=== PATIENT | female | born 1935 | race Caucasian/White ===

== ENCOUNTER 2018-09-08 12:45 | Inpatient (IN) ==
--- NOTE | 2018-09-08 14:57 | Diag Imaging Result Doc PS360 ---
EXAM: CHEST-PORTABLE 09/08/2018 HISTORY: sob TECHNIQUE: AP portable at 1449 COMMENT: Compared to 05/29/2018 the pleural effusion which was previously present on the left has resolved. Otherwise the appearance of the chest has not changed significantly. IMPRESSION: No acute disease. Electronically signed by Wallace Thayer 09/08/2018 2:54 PM
[2018-09-08 15:11] LABS: ALB/GLOB RATIO 1.1; ALBUMIN 3.6 g/dL (3.5-5.0); CALCIUM 8.8 mg/dL (8.8-10.2); CREATININE 0.9 mg/dL (0.5-0.9); TOTAL BILIRUBIN 0.94 mg/dL (0.20-1.00); TOTAL PROTEIN 6.8 g/dL (6.3-8.3)
[2018-09-08 15:24] LABS: BASO# 0.02 X1000 (0.0-0.2); BASO% 0.2 % (0.0-0.8); EOS# 0.05 X1000 (0.0-0.7); EOS% 0.6 % (0.0-10.0); HEMATOCRIT 40.4 % (37.0-47.0); HEMOGLOBIN 12.7 g/dL (12.0-16.0); IMM GRAN# 0.02 X1000 (0.0-0.04); IMM GRAN% 0.2 % (0.0-0.5); LYMPH# 0.92 X1000 (1.2-3.4); LYMPH% 10.7 % (20.5-51.1); MCH 26.4 PG (27-31); MCHC 31.4 g/dL (33-37); MONO# 0.61 X1000 (0.11-0.59); MONO% 7.1 % (1.7-9.3); NEUT# 6.98 X1000 (1.4-6.5); NEUT% 81.2 % (42.2-75.2); PLT < 6 X1000 (130-400); RBC 4.81 XMIL (4.2-5.4); RDW 15.3 % (11.5-14.5)
[2018-09-08 15:35] LABS: LYMPHS 4 % (21-51); MONO 6 % (1-9); SEGS 90 % (42-75)
[2018-09-08 15:49] LABS: URINE SOURCE CLEAN CATCH
[2018-09-08] MEDS ORDERED: NS 1,000 ML IV ONE (15:55)
[2018-09-08 16:04] LABS: BILIRUBIN URINE NEGATIVE (NEGATIVE); BLOOD URINE MODERATE (NEGATIVE); COLOR STRAW; GLUCOSE URINE NEGATIVE (NEGATIVE); KETONE URINE NEGATIVE (NEGATIVE); LEUKOCYTES URINE TRACE (NEGATIVE); NITRITE URINE NEGATIVE (NEGATIVE); PROTEIN URINE NEGATIVE (NEGATIVE); SP GRAVITY URINE 1.001; TURBIDITY URINE CLEAR (CLEAR); UROBILINOGEN URINE NORMAL (NORMAL)
[2018-09-08 16:05] LABS: UR EPITHELIAL CELLS <10 /HPF (<10); URINE BACTERIA NEGATIVE /HPF; URINE RBC <10 /HPF (<10); URINE WBC <10 /HPF (<10)
[2018-09-08] MEDS ORDERED: SOLU-MEDROL IV ONE (16:12)
--- NOTE | 2018-09-08 16:15 | PROVIDER DOCUMENTATION ---
This chart was entered by Lubna Luis Scribe, acting as scribe for Anderson Wade MD. HPI-General Adult - General Chief Complaint: Shortness of Breath Stated Complaint: SOB,ON XARELTO,BLOOD UNDER LT EYE,KNOT ON RT THIGH Time Seen by Provider: 09/08/18 14:41 Source: patient, family (Daughter) Allergies/Adverse Reactions: Patient Allergies Allergy/AdvReac Type Severity Reaction Status Date / Time morphine Allergy RASH Verified 03/21/17 18:35 Home Medications: Home Medication List Medication Instructions Recorded Confirmed Last Taken Type Celecoxib 200 mg PO DAILY 03/21/17 03/21/17 03/21/17 History Furosemide [Lasix] 60 mg PO DAILY 03/21/17 03/21/17 03/21/17 History Levothyroxine [Synthroid] 44 microgm PO DAILY 03/21/17 03/21/17 03/21/17 History Methocarbamol 500 mg PO TID 03/21/17 03/21/17 03/21/17 History Metoprolol Tartrate 25 mg PO BID 03/21/17 03/21/17 03/21/17 History Montelukast [Singulair] 10 mg PO DAILY 03/21/17 03/21/17 03/21/17 History Potassium Chloride E.r. [Micro-K] 20 meq PO DAILY 03/21/17 03/21/17 03/21/17 History Rivaroxaban [Xarelto] 20 mg PO DAILY 03/21/17 03/21/17 03/21/17 History - History of Present Illness -Gen Adult Nature of Presenting Problems: 83 y/o female presents to the ED with complaint of petechia to bilateral lower extremities since last night,embolic lesions, blood pooling under left eye and hematoma above right knee without injury. The patient is on Xarelto. The patient is also hearing impaired and daughter is with her to help with communication. Location of Pain/Injury: reports: lower extremity (bilateral), generalized Onset/Duration: reports: last night Timing: reports: still present Context/Activities at Onset: reports: light activity Associated Symptoms: denies: diarrhea, fever/chills, nausea, vomiting Similar Symptoms Previously?: No Recently seen or treated by another doctor?: No Review of Systems - Adult - REVIEW OF SYSTEMS - ADULT Constitutional: denies: chills, fever, night sweats Cardiovascular: denies: chest pain, palpitations, syncope Gastrointestinal: denies: abdominal pain, diarrhea, nausea, vomiting Integumentary: reports: rash (bilateral lower extremities) Past History - Adult - PAST MEDICAL HISTORY-ADULT Review of Records: reports: Old Records Reviewed, Nursing Assessment Review, Medications Reviewed - IMMUNIZATION STATUS Childhood Immunizations: See Nurse Assessment Flu Vaccine: See Nurse Assessment - SOCIAL HISTORY Smoking: non-smoker Substance Use: none/never Alcohol Use Frequency: never Physical Exam-General - PHYSICAL EXAM-ADULT Initial Vital Signs Reviewed: Yes - CONSTITUTIONAL General Appearance: alert - EYES Eyes: other (blood pooling under left eye) - HEAD, EARS, NOSE, MOUTH & THROAT HENMT: normocephalic/atraumatic, moist mucous membranes - RESPIRATORY Respiratory: lungs clear, normal breath sounds. negative: rales, rhonchi, wheezing - CARDIOVASCULAR Cardiovascular: no murmur, other (atrial fibrillation) - GASTROINTESTINAL (ABDOMEN) Abdominal Exam: non tender, soft. negative: guarding, rebound - MUSCULOSKELETAL Back Exam: kyphosis (severe) - SKIN Integumentary: embolic lesions (left lower leg, right knee, back), other ( prominent petechia bilateral lower extremities, bleeding from venopuncture site , hematoma above right knee and left shoulder) Progress - PLAN OF CARE/RESULTS Progress/Plan/Lab Results: Vital Signs - 8 hr 09/08/18 12:51 Pulse Rate 88 Respiratory Rate 16 Blood Pressure 115/45 O2 Sat by Pulse Oximetry 100 Orders Category Date Time Status CHEST-PORTABLE [RAD] Stat Exams 09/08/18 14:42 Ordered CBC WITH ELECTRONIC DIFF [HEME] Stat Lab 09/08/18 14:47 Ordered COMPREHENSIVE METABOLIC PANEL [CHEM] Stat Lab 09/08/18 14:47 Ordered UA NIMS W/REFLEX CULT [URINALYSIS] Stat Lab 09/08/18 14:42 Uncollected 1407 Discussed diagnosis and admission with the patient and her daughter. They are in agreement. Result Diagrams: 09/08/18 13:58 09/08/18 13:58 - REASSESSMENT Reassessment #1 Time Reassessed: 16:13 Status: unchanged (Discussed with Dr Crespo. I suspect ITP and will give platelets plus steroids, consult heme-onc) - EKG 1 Time of EKG reading by physician:: 14:30 EKG Read and Signed by:: Anderson Wade EKG Interpretation (*Must complete 3 of following elements*): Abnormal Rate: 84 Rhythm: atrial fibrillation [place]: normal ST Wave: non-specific ST changes Prior EKG Comparison: unchanged from prior (03/21/17) - XRAY 1 XRAY Study: Chest Impression: Normal (EXAM: CHEST-PORTABLE 09/08/2018 HISTORY: sob TECHNIQUE: AP portable at 1449 COMMENT: Compared to 05/29/2018 the pleural effusion which was previously present on the left has resolved. Otherwise the appearance of the chest has not changed significantly. IMPRESSION: No acute disease. Electronically signed by Wallace Thayer 09/08/2018 2:54 PM) Comparison with other Films: changes noted (resolution of pleural effusion) - CONSULTS/PCP/HOSPITALIST Notification #1 *Consult/PCP/Hospitalist*: Dr Crespo for Danny Braden Time Discussed: 15:44 Reason/Comments: platelet count <6 Consult Disposition: Admit Departure - Departure Date of Disposition Decision: 09/08/18 Time of Disposition Decision: 15:41 DIAGNOSIS: Thrombocytopenia Disposition: ADMITTED INPATIENT 09 Certified Medical Emergency: Emergent Condition: Serious Referrals and Follow-Ups: Danny Braden MD [Primary Care Provider] - - Critical Care Note This patient required my direct & personal management of CC.: Yes Total Time (mins): 36 Critical Care Statement: This patient required my direct personal management to treat or rule out processes, the absence of which, could potentiallly result in sudden, clinically significant life or limb threatening deterioration. Attestation - Physician/ FABIÁN Attestation The physician spent face to face time with patient:: Yes Advanced Practice Provider documentation review:: Supervising physician onsite and consulted in the evaluation and care of this patient. The physician did have a face to face encounter with the patient. This chart was documented by the indicated scribe, (Lubna Luis, Leanna) and accurately reflects the services I performed and decisions made by me, Anderson Wade MD, as attested by the provider's signature.
--- NOTE | 2018-09-08 20:40 | HISTORY AND PHYSICAL ---
SUBJECTIVE: Spots all over my body and blood in my stool. Patient has been short of breath also. PRESENT ILLNESS: The patient is an 83-year-old white female with a history of heart failure, hypothyroidism, chronic atrial fibrillation and on Xarelto who started having petechiae over her body yesterday morning and started having some rectal bleeding. By that time other family members found out about this it was later at night and decided not to bring her to the emergency room until today. The bleeding has been very sparse and she is not anemic at this time. The petechiae started out on her shoulders and her back and it has spread over most of her body now. She has a couple of indurated areas that are probably little hematomas above her knees. PAST HISTORY: Includes hearing impairment to the point where she had to learn sign language, she has had a total hysterectomy, she has had cataract surgery. ALLERGIES: She is apparently allergic to morphine. SOCIAL HISTORY: Does not use alcohol or tobacco and never has. FAMILY HISTORY: Is unremarkable. REVIEW OF SYSTEMS: Neurological: Denies headaches, seizures, visual problems except in the left eye which she has had some chronic visual problems, someone told her that they thought she had a stroke in that eye in the past. She does have impaired hearing. Pulmonary: Has been short of breath for last day or so though chest x-ray appears normal, she denies any cough or wheezing. Cardiovascular: Denies chest pain, heart palpitations, PND, orthopnea. GI: Denies hematemesis, nausea, vomiting but does have hematochezia. : Denies any problems with urination. Endocrine: Does have hypothyroidism and takes thyroid replacement hormone. Musculoskeletal: Does have some osteoarthritis hurts her left shoulder especially at times. Psychiatric: Denies anxiety or depression at this time. PHYSICAL EXAMINATION: Pulse is 88, respirations 16, blood pressure 115/45, O2 saturation was 100%. HEENT: She is normocephalic. EOMS intact. PERRLA. Throat clear. Fundi not seen well due to constriction of pupils. She does have a little hematoma under her left eye. NECK: Is supple without thyromegaly, lymphadenopathy, carotid bruits. LUNGS: Clear to auscultation and percussion without rhonchi, rales, or wheezes. HEART: Irregularly irregular without murmurs, gallops, friction rubs. ABDOMEN: Soft. Active bowel sounds. No organomegaly or tenderness. NEUROLOGICAL: Cranial nerves 2-12 intact grossly, sensory and motor intact. Reflexes 1+ all. BREAST: Deferred. PELVIC: Deferred. RECTAL: Deferred at this point. INTEGUMENT: Shows petechiae over much of her body. LAB: Her platelet count is less than 6000, white count was 8600, hemoglobin 12.7, hematocrit 40.4. BUN and creatinine, electrolytes are stable, blood sugar was 136 nonfasting. Urinalysis was normal except for moderate blood on dipstick but less than 10 red blood cells per high- powered field microscopically. ASSESSMENT: 1. 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 2. Rectal bleeding mild at this point. 3. History of congestive heart failure. 4. Shortness of breath. 5. Hypothyroidism. 6. Hearing impaired. 7. Chronic atrial fibrillation. PLAN: We will stop her blood thinners. We will give her platelets. Will consult Hematology. She has been given 125 mg of Solu-Medrol IV. We will hold her Lasix and potassium at this time since she has a little rectal bleeding just in case she becomes hypotensive. We will continue with the metoprolol because we need it for heart rate is 25 mg p.o. b.i.d. Her regular medicines include Celebrex 200 mg daily, Lasix 60 mg daily, potassium 20 mEq daily, Xarelto 20 mg daily, levothyroxine 88 mcg daily, methocarbamol 500 mg every 6 hours as needed for muscle relaxation, metoprolol 25 mg p.o. b.i.d. and Singulair 10 mg at bedtime. Will watch platelets closely, will transfuse as needed. I have consulted hematology. She will be given a pack of platelets, may consider checking for antibodies against platelets, will consult with Dr. Yan about this. cc: Tyrone Crespo Jr, MD
[2018-09-08] MEDS: LOPRESSOR PO SCH (20:58)
[2018-09-09 06:10] LABS: INR 1.3; PROTIME 17.2 Seconds (11.0-16.0)
[2018-09-09 06:11] LABS: PTT 34.3 Seconds (22.3-41.8)
[2018-09-09 06:15] LABS: HEMATOCRIT 35.5 % (37.0-47.0); HEMOGLOBIN 11.3 g/dL (12.0-16.0); IMM GRAN# 0.04 X1000 (0.0-0.04); IMM GRAN% 0.5 % (0.0-0.5); LYMPH# 0.51 X1000 (1.2-3.4); LYMPH% 6.6 % (20.5-51.1); MCH 26.4 PG (27-31); MCHC 31.8 g/dL (33-37); MCV 82.9 FL (81-99); MONO# 0.17 X1000 (0.11-0.59); MONO% 2.2 % (1.7-9.3); NEUT# 6.96 X1000 (1.4-6.5); NEUT% 90.7 % (42.2-75.2); RBC 4.28 XMIL (4.2-5.4); RDW 14.9 % (11.5-14.5); WBC 7.68 X1000 (4.8-10.8)
[2018-09-09 06:16] LABS: PLT < 6 X1000 (130-400)
[2018-09-09] MEDS: SYNTHROID PO SCH (06:27)
[2018-09-09 06:39] LABS: AGAP 10; BUN 23 mg/dL (8-22); CALCIUM 8.4 mg/dL (8.8-10.2); CHLORIDE 102 mmol/L (98-107); COSMO 285; CREATININE 0.7 mg/dL (0.5-0.9); ESTIMATED GFR > 60; GLUCOSE 226 mg/dL (70-104); POTASSIUM 3.8 mmol/L (3.5-5.1); SODIUM 137 mmol/L (136-145); TCO2 25 mmol/L (25-35)
[2018-09-09 07:18] LABS: LDH 193 U/L (135-214)
[2018-09-09 07:53] LABS: LYMPHS 6 % (21-51); SEGS 94 % (42-75)
[2018-09-09] MEDS: LOPRESSOR PO SCH ×3 (09:52→20:01)
[2018-09-09] MEDS: SINGULAIR PO SCH (14:13)
[2018-09-09] MEDS: ROBAXIN PO SCH ×2 (14:14→17:29)
--- NOTE | 2018-09-09 15:18 | PROGRESS NOTE ---
DATE: 09/09/2018 SUBJECTIVE: The patient is doing well overall. She has had some petechia prominently and diffusely and she has bruising where she has had IV or blood draw, and she has a small hematoma on her right thigh, but overall has no major bleeding. She denies headache. OBJECTIVE: Vital Signs: Afebrile. Pulse 104, respirations 24, blood pressure 131/83, O2 sat room air 92% to 97%. Cardiovascular: Irregularly irregular. Lungs: Clear. Abdomen: Soft, nontender, nondistended. Extremities: No major edema, petechia prominent, diffuse, especially over the legs. Moderate bruising over the arms where she has had blood draws or IV site, but nothing severe. One small hematoma right distal thigh. HEENT: [place]. The patient is deaf. Cranial nerves are intact. She communicates with her family well with sign language primarily. There are no focal deficits. ASSESSMENT: 1. Severe thrombocytopenia. 2. History of mild hematochezia. 3. History of congestive heart failure. 4. Chronic atrial fibrillation, on Xarelto per Dr. Guardado, her manufacturing technologist. 5. Hypothyroidism. 6. Chronic deafness. PLAN: Continue IV Solu-Medrol. Dr. Yee has been notified regarding the patient is ordered anti- platelet antibody testing. We will leave her off the Xarelto and Celebrex she has been on, reinstitute her Lasix and potassium in the morning as she is concerned about leaving that off. Continue her Robaxin and Synthroid. We discussed with the help of her family about patient should not get up unassisted and I talked with the nurse that she should only be gotten up to go to the bathroom. She should not sit up in a chair at this point. We will re-evaluate labs in the morning. cc: MD Tyrone Barrera Jr, MD
[2018-09-09] MEDS: SOLU-MEDROL IV SCH ×2 (16:08→23:49)
[2018-09-10] MEDS: SOLU-MEDROL IV SCH ×5 (05:20→21:54)
[2018-09-10] MEDS: SYNTHROID PO SCH ×2 (05:21→06:10)
[2018-09-10 05:59] LABS: BASO# 0.01 X1000 (0.0-0.2); BASO% 0.1 % (0.0-0.8); HEMATOCRIT 37.4 % (37.0-47.0); IMM GRAN# 0.09 X1000 (0.0-0.04); IMM GRAN% 0.5 % (0.0-0.5); LYMPH# 0.91 X1000 (1.2-3.4); LYMPH% 5.4 % (20.5-51.1); MCH 26.7 PG (27-31); MCHC 32.1 g/dL (33-37); MCV 83.3 FL (81-99); MONO# 0.29 X1000 (0.11-0.59); MONO% 1.7 % (1.7-9.3); NEUT# 15.44 X1000 (1.4-6.5); NEUT% 92.3 % (42.2-75.2); RBC 4.49 XMIL (4.2-5.4); RDW 15.2 % (11.5-14.5); WBC 16.74 X1000 (4.8-10.8)
[2018-09-10 06:14] LABS: AGAP 14; BUN 24 mg/dL (8-22); CALCIUM 9.4 mg/dL (8.8-10.2); CHLORIDE 102 mmol/L (98-107); COSMO 290; CREATININE 0.7 mg/dL (0.5-0.9); ESTIMATED GFR > 60; GLUCOSE 217 mg/dL (70-104); POTASSIUM 4.1 mmol/L (3.5-5.1); SODIUM 140 mmol/L (136-145); TCO2 24 mmol/L (25-35)
[2018-09-10 06:16] LABS: PLT < 6 X1000 (130-400)
[2018-09-10 07:06] LABS: BANDS 4 % (0-1); LYMPHS 18 % (21-51); MONO 2 % (1-9); SEGS 76 % (42-75)
--- NOTE | 2018-09-10 08:42 | EKG Report ---
Test Performed on : 09/08/2018 1:50:34 PM Test Reason : ED. NO EKG ORDER FOR MUSE Blood Pressure : / mmHG Vent. Rate : 084 BPM Atrial Rate : 073 BPM P-R Int : 000 ms QRS Dur : 080 ms QT Int : 372 ms P-R-T Axes : 000 030 -26 degrees QTc Int : 439 ms Atrial fibrillation. Nonspecific ST and T wave abnormality Abnormal ECG When compared with ECG of 21-MAR-2017 17:56, Nonspecific T wave abnormality, worse in Anterolateral leads Unconfirmed Result
--- NOTE | 2018-09-10 09:00 | PROGRESS NOTE ---
DATE: 09/10/2018 SUBJECTIVE: Patient is stable. There have been no signs of bleeding at this point. OBJECTIVE: Vital signs: Afebrile, pulse 91, respirations 16, blood pressure 165/89. O2 saturation room air 90-94%. Eyes: [place]. EOMI. Sclerae clear. Minor bruising left lower lateral eyelid area. CARDIOVASCULAR: Irregularly irregular. Lungs: Computed tomography angiography. Abdomen: Soft, nontender, no bowel movement yet this morning. Extremities: Petechia over the legs. No lower extremity edema. A couple of small hematomas over the distal thighs bilaterally, one over the right lateral calf area. These are minor. Neurologic: Cranial nerves are intact. No focal deficits. The patient has chronic deafness, but reads lips well. LABORATORIES: White count 16.7, hemoglobin 12, platelets less than 6,000. Sodium 140, potassium 4.1, chloride 102, CO2 24, BUN 24, creatinine 0.7, glucose 217. LDH 193. ASSESSMENT: 1. Severe thrombocytopenia. 2. Mild hematochezia, stable. 3. Petechia associated with #1. 4. History of congestive heart failure, compensated. 5. Chronic atrial fibrillation on chronic Xarelto treatment per Cardiology, Dr. Guardado. 6. Hypothyroidism. 7. Chronic deafness. 8. Leukocytosis, thought related to steroids. PLAN: Continue IV Solu-Medrol. We are awaiting Hematology evaluation. The anti-platelet antibody is in progress. We are holding her Xarelto and Celebrex. Continue her Lasix, potassium, Robaxin and Synthroid. She is being maintained at fall risk precautions with minimal mobility at this time due to low platelets. cc: MD Tyrone Barrera Jr, MD
[2018-09-10] MEDS: LOPRESSOR PO SCH ×2 (10:11→21:50)
[2018-09-10] MEDS: LASIX PO SCH (10:11)
[2018-09-10] MEDS: KLOR-CON PO SCH ×3 (10:11→23:16)
[2018-09-10] MEDS: ROBAXIN PO SCH ×4 (10:11→17:52)
[2018-09-10] MEDS: SINGULAIR PO SCH ×2 (10:11→10:17)
[2018-09-10] MEDS ORDERED: IVIG DOSING ORDER MISC SCH (12:15)
[2018-09-10] MEDS ORDERED: GAMUNEX-C 10% IV ONE (12:15)
--- NOTE | 2018-09-10 16:35 | HEMO/ONC CONSULTATION ---
DATE: 09/10/2018 CONSULTATION REQUESTED ON: 09/08/2018 CONSULTATION REQUESTED BY: Dr. Crespo. REASON FOR CONSULTATION: Low platelet count. HISTORY OF PRESENT ILLNESS: Ms Rivera is a an 83-year-old female who actually presented after she developed petechiae and rectal bleeding while at home. The patient has a history of atrial fibrillation and was on Xarelto prior to her admission. She has now been admitted for further evaluation and treatment. Labs have revealed that the patient has a platelet count of less than 6000. She has been transfused with 1 unit of irradiated pheresis platelets without any improvement in her platelet count. The patient is also currently on Solu- Medrol 60 mg IV q.8 hours. The high-dose steroids have also did not caused her platelet count to increase. PAST MEDICAL HISTORY: 1. Hearing impairment, the patient requires sign language to communicate. 2. Cataracts . SURGICAL HISTORY: 1. A total hysterectomy. 2. Cataract surgery. SOCIAL HISTORY: Patient does not use alcohol, tobacco or illicit drugs. FAMILY HISTORY: Negative for any hematology disorders. REVIEW OF SYSTEMS: Twelve point review of systems has been completed negative except for what was expressed in the HPI. PHYSICAL EXAMINATION: Vital Signs: Temperature 97.8 degrees, heart rate 91, respirations 16, blood pressure 165/89, O2 saturation 94% on room air. General: This is a female lying in hospital bed. She has a family member at bedside to translate. She is hearing impaired and does require sign language to communicate. HEENT: Head appears to be normocephalic, atraumatic. Pupils equal, round, reactive. Oral mucosa is normal. Gross auditory acuity is not intact. Cardiovascular: S1-S2 heard. No murmurs, gallops, rubs appreciated. Respiratory: Chest is clear with normal respiratory effort. Gastrointestinal: Abdomen soft with positive bowel sounds noted. Musculoskeletal: No bony abnormalities. Skin: Patient has extensive petechiae bilateral lower extremities that starts at her feet and extends all the way to her mid thigh. She also has scattered ecchymotic lesions. She has slight oozing from her IV site in her right cubital fossa. Neurologic: Patient is alert and oriented. She does not appear to have any focal motor deficits. LABS AND STUDIES: White blood cells 16.74, hemoglobin 12.0, hematocrit 37.4, platelet count less than 6000, sodium 140, potassium 4.1, chloride 102, CO2 24, BUN 24, creatinine 0.7, glucose 217. ASSESSMENT/PLAN: 1. Thrombocytopenia. Believed that she has idiopathic thrombocytopenia. We agree with holding her Xarelto and NSAID therapy. High-dose steroids have not been effective so we recommend moving on to IVIG. The patient has good kidney function. Will go ahead and give a dose of Gamunex today. Reviewed treatment plan with patient and family member at bedside. They are agreeable. She will be monitored closely for infusion reactions and will follow up to make sure she had no toxicities to her therapy. We will continue to monitor her platelet count. Would recommend only proceeding with any further platelet transfusions at this time if she has significant bleeding. 2. Atrial fibrillation. Agree with holding Xarelto for the time being given her extremely low platelet count. 3. Hypertension. Continue current management per the primary team. 4. Hypothyroidism. Patient will continue with her Synthroid again per the primary team. We want to thank you for consulting us on Ms. Rivera while she is here at [facility]. Will continue to follow along adjust our treatment plan per her hospital course. Dictated by THI Fletcher for Danielle Yee MD cc: MD Tyrone De Los Santos Jr, MD I have seen and examined the patient and the above note reflects my history, physical, assessment and plan. Danielle GILBERT
[2018-09-11 06:11] LABS: AGAP 11; BUN 34 mg/dL (8-22); CALCIUM 8.9 mg/dL (8.8-10.2); CHLORIDE 101 mmol/L (98-107); COSMO 289; CREATININE 0.8 mg/dL (0.5-0.9); ESTIMATED GFR > 60; GLUCOSE 136 mg/dL (70-104); POTASSIUM 3.6 mmol/L (3.5-5.1); SODIUM 140 mmol/L (136-145); TCO2 28 mmol/L (25-35)
[2018-09-11] MEDS: SYNTHROID PO SCH (06:16)
[2018-09-11] MEDS: SOLU-MEDROL IV SCH (06:16)
[2018-09-11 06:23] LABS: EOS# 0.01 X1000 (0.0-0.7); EOS% 0.1 % (0.0-10.0); HEMATOCRIT 34.9 % (37.0-47.0); HEMOGLOBIN 11.1 g/dL (12.0-16.0); IMM GRAN# 0.11 X1000 (0.0-0.04); IMM GRAN% 0.9 % (0.0-0.5); LYMPH# 1.26 X1000 (1.2-3.4); LYMPH% 10.1 % (20.5-51.1); MCH 26.6 PG (27-31); MCHC 31.8 g/dL (33-37); MCV 83.7 FL (81-99); MONO# 1.15 X1000 (0.11-0.59); MONO% 9.2 % (1.7-9.3); NEUT# 9.93 X1000 (1.4-6.5); NEUT% 79.7 % (42.2-75.2); RBC 4.17 XMIL (4.2-5.4); RDW 15.4 % (11.5-14.5); WBC 12.46 X1000 (4.8-10.8)
[2018-09-11 06:59] LABS: PLT < 6 X1000 (130-400)
--- NOTE | 2018-09-11 09:21 | PROGRESS NOTE ---
DATE: 09/11/2018 SUBJECTIVE: The patient is stable. She has had a little bit of bright red blood in her stool this morning, she says. She is, overall, feeling well. OBJECTIVE: Vital Signs: Afebrile. Pulse 81, respirations 20, blood pressure 150/72. Extremities: Petechia over the legs is decreasing slightly. Lungs: CTA. HEART: Irregularly irregular. Abdomen: Soft, nontender, nondistended. Neurologic: Cranial nerves are intact. No focal deficits. She has chronic deafness sodium 140, potassium 3.6, chloride 101, CO2 of 28. BUN 34, creatinine 0.8, glucose 136, calcium 8.9. White count 12.46 on steroids. Hemoglobin 11.1, platelets less than 6. ASSESSMENT: 1. 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 Now, on IV immune immunoglobulin. 2. Mild hematochezia, thought related to #1. 3. Petechia thought related to #1. 4. History of congestive heart failure, currently compensated. 5. Chronic atrial fibrillation, previously on Xarelto, but off that now due to the thrombocytopenia. 6. Hypothyroidism. 7. Chronic deafness. 8. Leukocytosis thought related to steroids. PLAN: At this time, the steroids have not seemed to help so I stop that and leave that up to the legal examiner to see if they think this is necessary to continue that. At this time, there were trying immunoglobulin. We are continuing to hold her Xarelto and Celebrex. She remains on some Lasix, potassium, Robaxin, Synthroid. We are keeping her generally at bed rest to avoid falls. We will continue to monitor her platelet count. cc: MD Tyrone Barrera Jr, MD
[2018-09-11] MEDS: LOPRESSOR PO SCH ×2 (10:25→21:37)
[2018-09-11] MEDS: LASIX PO SCH (10:25)
[2018-09-11] MEDS: ROBAXIN PO SCH ×2 (10:26→17:13)
[2018-09-11] MEDS: SINGULAIR PO SCH (10:27)
[2018-09-11] MEDS: PROTONIX IV SCH (10:30)
[2018-09-11] MEDS: KLOR-CON PO SCH (21:37)
[2018-09-12] MEDS: SYNTHROID PO SCH (06:09)
[2018-09-12 07:56] LABS: AGAP 10; BUN 30 mg/dL (8-22); CHLORIDE 101 mmol/L (98-107); COSMO 289; CREATININE 0.7 mg/dL (0.5-0.9); ESTIMATED GFR > 60; GLUCOSE 126 mg/dL (70-104); POTASSIUM 3.7 mmol/L (3.5-5.1); SODIUM 141 mmol/L (136-145); TCO2 30 mmol/L (25-35)
[2018-09-12 08:03] LABS: BASO# 0.01 X1000 (0.0-0.2); BASO% 0.1 % (0.0-0.8); EOS# 0.06 X1000 (0.0-0.7); EOS% 0.5 % (0.0-10.0); HEMATOCRIT 38.3 % (37.0-47.0); HEMOGLOBIN 12.1 g/dL (12.0-16.0); IMM GRAN% 0.9 % (0.0-0.5); LYMPH# 1.91 X1000 (1.2-3.4); LYMPH% 16.4 % (20.5-51.1); MCH 26.6 PG (27-31); MCHC 31.6 g/dL (33-37); MCV 84.2 FL (81-99); MONO# 1.24 X1000 (0.11-0.59); MONO% 10.6 % (1.7-9.3); NEUT# 8.35 X1000 (1.4-6.5); NEUT% 71.5 % (42.2-75.2); PLT < 6 X1000 (130-400); RBC 4.55 XMIL (4.2-5.4); RDW 16.1 % (11.5-14.5); WBC 11.67 X1000 (4.8-10.8)
[2018-09-12 08:16] LABS: LYMPHS 8 % (21-51); SEGS 90 % (42-75)
--- NOTE | 2018-09-12 09:09 | PROGRESS NOTE ---
DATE: 09/12/2018 SUBJECTIVE: The patient is fairly stable. Her son is with her this morning. She had some worsened hematochezia this morning and has had some pain at the forefoot slightly. OBJECTIVE: Afebrile. Vital signs stable. CV: Irregularly irregular. Lungs: Clear. Abdomen soft, nontender. Extremities: No calf tenderness, cords, or edema. Some arthritic changes are noted at the forefoot bilaterally, left slightly greater than right. No tenderness there. There were no major hematomas over the legs, but petechia are slightly worsened again today compared to yesterday. LABORATORY DATA: White count 11.6, hemoglobin 12.1, platelets less than 6. Sodium 141, potassium 3.7, chloride 101, CO2 of 30. BUN 30, creatinine 0.7, glucose 126. ASSESSMENT: 1. Severe thrombocytopenia thought related to ITP followed by hematology with them having evaluated her again this morning. So far, no response to high-dose steroids and then IV immunoglobulin. 2. Mild hematochezia slightly worsened again. 3. Petechia. 4. Congestive heart failure, compensated. 5. CAF previously on Xarelto, off of that due to the thrombocytopenia. 6. Hypothyroidism. 7. Chronic deafness. 8. Mild leukocytosis thought related to steroids, now improved off the steroids. 9. Osteoarthritis. PLAN: Continue treatment per Hematology. Will follow along with her atrial fibrillation and other difficulties. I will speak with Hematology later today. cc: MD Tyrone Barrera Jr, MD MTDD
[2018-09-12] MEDS: LOPRESSOR PO SCH ×2 (09:20→21:31)
[2018-09-12] MEDS: PROTONIX IV SCH (09:21)
[2018-09-12] MEDS: SINGULAIR PO SCH ×2 (09:21→10:08)
[2018-09-12] MEDS: ROBAXIN PO SCH ×3 (09:21→21:31)
[2018-09-12] MEDS: SODIUM CHLORIDE 0.9% INJ SCH (09:21)
[2018-09-12] MEDS: LASIX PO SCH (09:21)
[2018-09-12] MEDS ORDERED: SOLU-MEDROL IV ONE (11:45)
[2018-09-12] MEDS ORDERED: IVIG DOSING ORDER MISC SCH (13:00)
[2018-09-12] MEDS: DECADRON PO SCH (14:54)
[2018-09-12] MEDS: GAMUNEX-C 10% IV SCH (18:32)
--- NOTE | 2018-09-13 00:34 | HEMO/ONC PROGRESS NOTE ---
DATE: 09/12/2018 SUBJECTIVE: Ms. Rivera is lying in her hospital bed. She has a family member at bedside. She is in no acute distress at this time. OBJECTIVE: Vital signs: Temperature 98.2 degrees, heart rate 95, respirations 18, blood pressure 136/74, O2 saturation 97% on room air. LABORATORIES: White blood cells 11.67, hemoglobin 12.1, hematocrit 38.3, platelet count less than 6000. Sodium 141, potassium 3.7, chloride 101, CO2 of 30, BUN 30, creatinine 0.7, glucose 126. PHYSICAL EXAMINATION: Cardiovascular: S1, S2 heard. No murmurs, gallops, or rubs appreciated. Irregularly irregular rhythm noted. Respiratory: Chest is clear with normal respiratory effort. Gastrointestinal: Abdomen is soft with positive bowel sounds. Musculoskeletal : No bony abnormalities. Extremities: No edema. ASSESSMENT AND PLAN: 1. Severe thrombocytopenia, believed to be secondary to idiopathic thrombocytopenic purpura. The patient is now status post some high-dose steroids as well as 1 dose of IVIG. The plan at this time will be to proceed with high-dose dexamethasone for 4 days. We will prescribe dexamethasone 40 mg p.o. x4. We are also going to go ahead and proceed with further IVIG, giving her an additional 4 doses. The patient has reported bright red blood per rectum this morning, and so we will proceed also with a unit of platelets. Continue to monitor platelet count. 2. Petechiae. These are still present and seem to actually maybe be a little bit worse. Treating ITP as per above. 3. Congestive heart failure, compensated. Aware. Management per primary team. 4. Atrial fibrillation. The patient was previously on Xarelto, but that is on hold now due to her thrombocytopenia. Rate seems controlled. Management per primary team. Dictated by THI Fletcher for Danielle Yee MD cc: MD Tyrone De Los Santos Jr, MD I have seen and examined the patient and the above note reflects my history, physical, assessment and plan. Danielle GILBERT
[2018-09-13] MEDS: SYNTHROID PO SCH (06:26)
[2018-09-13] MEDS: LOPRESSOR PO SCH ×2 (09:57→21:58)
[2018-09-13] MEDS: PROTONIX IV SCH (09:57)
[2018-09-13] MEDS: SODIUM CHLORIDE 0.9% INJ SCH (09:57)
[2018-09-13] MEDS: SINGULAIR PO SCH (09:57)
[2018-09-13] MEDS: ROBAXIN PO SCH ×3 (09:57→21:58)
[2018-09-13 10:18] LABS: BASO# 0.02 X1000 (0.0-0.2); BASO% 0.2 % (0.0-0.8); HEMATOCRIT 34.7 % (37.0-47.0); HEMOGLOBIN 11.1 g/dL (12.0-16.0); IMM GRAN% 0.9 % (0.0-0.5); LYMPH# 0.64 X1000 (1.2-3.4); LYMPH% 5.5 % (20.5-51.1); MCH 27.1 PG (27-31); MCV 84.8 FL (81-99); MONO# 0.43 X1000 (0.11-0.59); MONO% 3.7 % (1.7-9.3); NEUT# 10.48 X1000 (1.4-6.5); NEUT% 89.7 % (42.2-75.2); PLT 7 X1000 (130-400); RBC 4.09 XMIL (4.2-5.4); RDW 15.7 % (11.5-14.5); WBC 11.67 X1000 (4.8-10.8)
[2018-09-13 10:25] LABS: LYMPHS 10 % (21-51); SEGS 90 % (42-75)
[2018-09-13] MEDS: GAMUNEX-C 10% IV SCH (12:47)
--- NOTE | 2018-09-13 15:49 | HEMO/ONC PROGRESS NOTE ---
DATE: 09/13/2018 SUBJECTIVE: Ms. Rivera is sitting in her hospital bed. She is in no acute distress. She has a family member at bedside. OBJECTIVE: Vital Signs: Temperature 97.9, heart rate 120, respirations 19. Blood pressure 128/85. O2 saturation 99% on 2 L nasal cannula. LABORATORY DATA AND STUDIES: White blood cell 11.67, hemoglobin 11.1, platelet count 7000. PHYSICAL EXAMINATION: CV: Tachycardia noted. Irregularly irregular rhythm noted. Respiratory: Chest is clear. No respiratory effort. Abdomen soft with positive bowel sounds. Extremities: No edema. Skin: The patient continues to have scattered petechiae most prominent on her bilateral lower extremities but really widespread. She also has several ecchymotic lesions. ASSESSMENT AND PLAN: 1. Idiopathic thrombocytopenia. Patient denies any active bleeding currently. We have now given her 2 doses of IVIG. We have also started her on high-dose dexamethasone. We are going to go ahead and give her a unit of pheresed platelets today. We will repeat a CBC in the morning. She is scheduled for 3 additional IVIG treatments. She also has 2 additional days of high-dose steroids. We will monitor counts closely. Platelet count slightly up today. 2. Atrial fibrillation. She is also on Xarelto given her profound thrombocytopenia. Continue management per the primary team. 3. Gastrointestinal prophylaxis. Patient is receiving Protonix 40 mg IV daily. Dictated by THI Fletcher for Vic Yan MD cc: MD Tyrone Camacho Jr, MD MTDD
[2018-09-13] MEDS ORDERED: NS 500 ML IV SCH (16:00)
[2018-09-13] MEDS: DECADRON PO SCH (16:50)
--- NOTE | 2018-09-14 02:02 | PROGRESS NOTE ---
DATE: 09/13/2018 SUBJECTIVE: The patient is stable. There has been no significant bleeding. OBJECTIVE: Vital Signs: Afebrile. Pulse 120, respirations 19, blood pressure 128/85, O2 saturation on 2 L is 99%. Cardiovascular: Irregularly irregular. Lungs: Clear to auscultation. Abdomen: Nontender. Extremities: No significant edema. Mild petechiae over the legs is unchanged from yesterday. Neurologic: Cranial nerves are intact. No focal deficits. Chronic deafness unchanged. LABORATORY DATA: White count 11.67, hemoglobin 11.1, platelets 7000. ASSESSMENT: 1. Idiopathic thrombocytopenic purpura. 2. Mild hematochezia, stable. 3. Petechia. 4. Chronic atrial fibrillation previously on Xarelto, now off that due to the thrombocytopenia. 5. Hypothyroidism. 6. Chronic deafness. 7. Osteoarthritis. 8. Leukocytosis thought secondary to steroids. PLAN: The patient is receiving platelets, IVIG, and Decadron per Dr. Yee. We will continue to monitor her CBC for improvement of the platelets. We have taken her off her Lasix as that was causing her to have to get up and urinate quite often. cc: MD Tyrone Barrera Jr, MD
[2018-09-14] MEDS: SYNTHROID PO SCH (06:22)
[2018-09-14 07:30] LABS: BASO# 0.01 X1000 (0.0-0.2); BASO% 0.1 % (0.0-0.8); HEMATOCRIT 34.5 % (37.0-47.0); HEMOGLOBIN 10.9 g/dL (12.0-16.0); IMM GRAN# 0.11 X1000 (0.0-0.04); IMM GRAN% 0.8 % (0.0-0.5); LYMPH# 0.76 X1000 (1.2-3.4); LYMPH% 5.7 % (20.5-51.1); MCH 26.8 PG (27-31); MCHC 31.6 g/dL (33-37); MCV 84.8 FL (81-99); MONO# 0.44 X1000 (0.11-0.59); MONO% 3.3 % (1.7-9.3); NEUT# 12.07 X1000 (1.4-6.5); NEUT% 90.1 % (42.2-75.2); RBC 4.07 XMIL (4.2-5.4); RDW 15.9 % (11.5-14.5); WBC 13.39 X1000 (4.8-10.8)
[2018-09-14 07:31] LABS: PLT 18 X1000 (130-400)
[2018-09-14 07:33] LABS: AGAP 10; BUN 31 mg/dL (8-22); CALCIUM 9.2 mg/dL (8.8-10.2); CHLORIDE 98 mmol/L (98-107); COSMO 290; CREATININE 0.7 mg/dL (0.5-0.9); ESTIMATED GFR > 60; GLUCOSE 274 mg/dL (70-104); POTASSIUM 3.9 mmol/L (3.5-5.1); SODIUM 137 mmol/L (136-145); TCO2 29 mmol/L (25-35)
[2018-09-14 07:42] LABS: LYMPHS 4 % (21-51); MONO 6 % (1-9); SEGS 90 % (42-75)
[2018-09-14] MEDS: PROTONIX IV SCH (10:02)
[2018-09-14] MEDS: SODIUM CHLORIDE 0.9% INJ SCH (10:02)
[2018-09-14] MEDS: ROBAXIN PO SCH ×3 (10:03→21:18)
[2018-09-14] MEDS: LOPRESSOR PO SCH ×2 (10:03→21:18)
[2018-09-14] MEDS: GAMUNEX-C 10% IV SCH (10:03)
--- NOTE | 2018-09-14 13:36 | PROGRESS NOTE ---
DATE: 09/14/2018 SUBJECTIVE: Patient has been resting well. She is arousable and conversant. She has no complaints except she feels somewhat tired. OBJECTIVE: Afebrile, pulse 45, respirations 18, blood pressure 158/97, O2 saturation 93 to 100 percent on 2 L.CV: Irregularly irregular. Lungs: Clear. Abdomen: Nontender, nondistended. Extremities: No calf tenderness, cords or edema. Mild petechia over the legs look more old and slightly decreasing in prominence. LABS: White count 13.3 on steroids, hemoglobin 10.9, platelets 18,000. Sodium 137, potassium 3.9, chloride 98, CO2 of 29, BUN 31, creatinine 0.7, glucose 274, calcium 9.2. ASSESSMENT: 1. Idiopathic thrombocytopenia. 2. CAF previously on Xarelto now off of that due to #1. 3. Hypothyroidism. 4. Chronic deafness. 5. Osteoarthritis. 6. Leukocytosis thought related steroids. PLAN: Patient on IVIG and Decadron per Dr. Yee. Thankfully we are seeing some improvement in her platelets now. Further we will abide by Dr. Yee's recommendations. cc: MD Tyrone Barrera Jr, MD
[2018-09-14] MEDS: DECADRON PO SCH (15:29)
--- NOTE | 2018-09-14 16:17 | HEMO/ONC PROGRESS NOTE ---
DATE: 09/14/2018 SUBJECTIVE: Ms Rivera is sitting in her hospital bed. She does not appear to be in any acute distress. She reports that she is doing well. OBJECTIVE: Vital Signs: Temperature 98.1 degrees, heart rate 78, respirations 18, blood pressure 148/97, O2 saturation 100% on 2 L nasal cannula. LAB: White blood cells 13.39, hemoglobin 10.9, hematocrit 34.5, platelet count 18,000.CV: S1, S2 heard. No murmurs, gallops, rubs appreciated. Respiratory: Chest is clear. Normal respiratory effort. Gastrointestinal: Abdomen soft, positive bowel sounds. Musculoskeletal: No edema noted. ASSESSMENT AND PLAN: 1. Idiopathic thrombocytopenia. The patient is currently receiving intravenous immunoglobulin as well as high-dose dexamethasone. Her platelet count has risen to 18,000 today. Recommend continuing with IVIG and dexamethasone at this time. The patient can be discharged home and IVIG can be discontinued once she has a platelet count of 50,000. The patient only needs a total of 5 doses of IVIG. She only needs a total of 4 doses of high-dose steroids. Her platelet count should improve in the morning. We will plan for her to return to our office and have a CBC some time next week. She will then have an office visit with us the week after. We will get all this arranged once she is discharged from the hospital. 2. Atrial fibrillation. The patient is currently not receiving her Xarelto due to her profound thrombocytopenia. Management as per the primary team. 3. Gastrointestinal prophylaxis. Patient will continue with the Protonix IV as prescribed. 4. Disposition. Continue steroids and IVIG as per #1. Steroids and IVIG can be discontinued once her platelet count is 50,000 or greater or if she has received 5 total doses of IVIG and 4 total doses of dexamethasone whichever 1 occurs 1st. From our standpoint , once her platelets are at that level the patient can be discharged home. We will plan to do a repeat CBC next week and then follow up in 2 weeks. 5. We are going to sign off for the weekend and be available as needed. You can contact us with any questions. If the patient is still in the hospital Monday we will follow up at that time. Dictated by THI Fletcher for Dainelle Yee MD cc: MD Tyrone De Los Santos Jr, MD I have seen and examined the patient and the above note reflects my history, physical, assessment and plan. Danielle Yee MD [facility]
[2018-09-15] MEDS: SYNTHROID PO SCH (06:31)
[2018-09-15 08:06] LABS: HEMATOCRIT 35.7 % (37.0-47.0); HEMOGLOBIN 11.4 g/dL (12.0-16.0); MCH 27.3 PG (27-31); MCHC 31.9 g/dL (33-37); MCV 85.4 FL (81-99); RBC 4.18 XMIL (4.2-5.4); RDW 16.6 % (11.5-14.5); WBC 13.28 X1000 (4.8-10.8)
[2018-09-15 08:25] LABS: PLT 9 X1000 (130-400)
[2018-09-15] MEDS: SODIUM CHLORIDE 0.9% INJ SCH (09:22)
[2018-09-15] MEDS: GAMUNEX-C 10% IV SCH (09:22)
[2018-09-15] MEDS: PROTONIX IV SCH (09:22)
[2018-09-15] MEDS: LOPRESSOR PO SCH ×2 (09:22→22:00)
[2018-09-15] MEDS: ROBAXIN PO SCH ×3 (09:22→21:59)
--- NOTE | 2018-09-15 11:19 | PROGRESS NOTE ---
DATE: 09/15/2018 SUBJECTIVE: The patient is stable with no complaints. OBJECTIVE: Afebrile. Vital signs stable. CV: Irregularly irregular. Lungs: CTA. Abdomen soft, nontender, nondistended. Extremities: No edema, calf tenderness, or cords. Neuro: Cranial nerves are intact. Petechia, continue to fade very slightly. LABORATORY DATA: The labs today show white count of 13.28, hemoglobin 11.4. Platelets actually has gone down to 9 from 18 yesterday. ASSESSMENT: 1. Idiopathic thrombocytopenic purpura. 2. CAF with Xarelto currently being held due to #1. 3. Hypothyroidism. 4. Chronic deafness. 5. Osteoarthritis. 6. Mild leukocytosis thought related to steroid administration. PLAN: The patient remains on IVIG and oral Decadron per Dr. Yee. We will continue to follow platelets on this. cc: MD Tyrone Barrera Jr, MD MTDD
[2018-09-15] MEDS: DECADRON PO SCH (15:18)
[2018-09-16] MEDS: SYNTHROID PO SCH (06:27)
[2018-09-16] MEDS: LOPRESSOR PO SCH ×2 (09:09→21:58)
[2018-09-16] MEDS: ROBAXIN PO SCH ×3 (09:09→21:57)
[2018-09-16] MEDS: PROTONIX IV SCH (09:10)
[2018-09-16] MEDS: GAMUNEX-C 10% IV SCH (09:10)
[2018-09-16] MEDS: SODIUM CHLORIDE 0.9% INJ SCH (09:10)
[2018-09-16 10:40] LABS: HEMATOCRIT 33.3 % (37.0-47.0); HEMOGLOBIN 10.4 g/dL (12.0-16.0); MCHC 31.2 g/dL (33-37); MCV 86.5 FL (81-99); RBC 3.85 XMIL (4.2-5.4); RDW 16.6 % (11.5-14.5); WBC 13.05 X1000 (4.8-10.8)
[2018-09-16 10:45] LABS: PLT 6 X1000 (130-400)
--- NOTE | 2018-09-16 12:08 | PROGRESS NOTE ---
DATE: 09/16/2018 SUBJECTIVE: The patient is stable. She has had a little bright red blood per her nose associated with nasal cannula use of oxygen. OBJECTIVE: Vital Signs: Afebrile. Vital signs stable. Cardiovascular: RRR without murmur. Lungs: Clear. Abdomen: Soft. Active bowel sounds. Extremities: No calf tenderness, cords, or edema. Petechiae have almost completely resolved. There are a couple of small hematomas, right distal inner thigh areas. Neurologic: Cranial nerves are intact. Chronic deafness. Laboratory Data: White count 13, hemoglobin 10.4, platelets 6000. ASSESSMENT: 1. Thrombocytopenia, thought related to idiopathic thrombocytopenic purpura, slow to improve. 2. Paroxysmal atrial flutter/fibrillation, off of Xarelto treatment secondary to #1. 3. Hypothyroidism. 4. Chronic deafness. 5. Osteoarthritis. 6. Mild leukocytosis, thought related to recent steroid administration. PLAN: The patient will receive 1 more dose of IVIG this afternoon and Dr. Singh will reassess tomorrow. She is off of the Decadron orally now. We will continue to monitor her platelets closely in the morning. cc: MD Tyrone Barrera Jr, MD
[2018-09-17] MEDS: SYNTHROID PO SCH (06:26)
[2018-09-17 07:21] LABS: BASO# 0.02 X1000 (0.0-0.2); BASO% 0.2 % (0.0-0.8); EOS# 0.02 X1000 (0.0-0.7); EOS% 0.2 % (0.0-10.0); HEMATOCRIT 35.2 % (37.0-47.0); HEMOGLOBIN 11.1 g/dL (12.0-16.0); IMM GRAN# 0.62 X1000 (0.0-0.04); IMM GRAN% 5.3 % (0.0-0.5); LYMPH# 1.94 X1000 (1.2-3.4); LYMPH% 16.7 % (20.5-51.1); MCH 27.1 PG (27-31); MCHC 31.5 g/dL (33-37); MCV 85.9 FL (81-99); MONO# 0.86 X1000 (0.11-0.59); MONO% 7.4 % (1.7-9.3); NEUT# 8.13 X1000 (1.4-6.5); NEUT% 70.2 % (42.2-75.2); PLT 9 X1000 (130-400)
[2018-09-17 07:22] LABS: AGAP 9; BUN 29 mg/dL (8-22); CALCIUM 8.6 mg/dL (8.8-10.2); CHLORIDE 98 mmol/L (98-107); COSMO 280; CREATININE 0.6 mg/dL (0.5-0.9); ESTIMATED GFR > 60; GLUCOSE 143 mg/dL (70-104); POTASSIUM 3.8 mmol/L (3.5-5.1); SODIUM 136 mmol/L (136-145); TCO2 29 mmol/L (25-35)
[2018-09-17 07:42] LABS: BANDS 6 % (0-1); LYMPHS 22 % (21-51); NRBC 1 % (0-0); SEGS 72 % (42-75)
[2018-09-17] MEDS: PROTONIX IV SCH (08:59)
[2018-09-17] MEDS: LOPRESSOR PO SCH ×2 (08:59→21:36)
[2018-09-17] MEDS: ROBAXIN PO SCH ×3 (08:59→17:21)
[2018-09-17 10:28] LABS: WBC 11.59 X1000 (4.8-10.8)
[2018-09-17] MEDS ORDERED: LASIX IV ONE (12:43)
--- NOTE | 2018-09-17 13:36 | PROGRESS NOTE ---
DATE: 09/17/2018 SUBJECTIVE: Patient having some shortness of breath. Says she has had some nasal irritation with the nasal cannula. This has actually been stopped the last couple days, but apparently she had been wearing it. She denies chest pain, but has some shortness of breath. OBJECTIVE: Vital Signs: Afebrile, pulse 63, respirations 15, blood pressure 173/83, O2 saturation on 2 L 99%. CV: Irregularly irregular. Lungs: Cannot rule out rare crackle. ENT: Oropharynx, no significant redness or abnormality. Abdomen: Nontender. Extremities: No calf tenderness cords or edema. Petechia prominent over the shins. Neurologic: Cranial nerves 2 through 12 intact. Chronic deafness, stable. LABS: White count 11.5, hemoglobin 11.1, platelets 9. Sodium 136, potassium 3.8, chloride 98, CO2 of 29, BUN 29, creatinine 0.6, calcium 8.6. ASSESSMENT: 1. Thrombocytopenia thought related idiopathic thrombocytopenic purpura. 2. Paroxysmal atrial flutter/fibrillation, off Xarelto due to #1. 3. Hypothyroidism. 4. Chronic deafness. 5. Osteoarthritis. 6. Mild leukocytosis. PLAN: The patient is going down for chest x-ray. Leave her off the O2 as that is irritating her nose and causing it to bleed. She is receiving treatment per Oncology team, Dr. Yee/Yuriy. cc: MD Tyrone Barrera Jr, MD
--- NOTE | 2018-09-17 13:46 | Diag Imaging Result Doc PS360 ---
EXAM: CHEST-2 VIEWS HISTORY: SOB TECHNIQUE: Chest two views COMPARISON: 09/08/2018 FINDINGS: The lungs are hyperexpanded although there is basilar atelectasis. The heart is not enlarged. The vessels are not distended. There are no infiltrates. There are small pleural effusions. IMPRESSION: Emphysema with small pleural effusions. Electronically signed by De Singh 09/17/2018 1:44 PM
--- NOTE | 2018-09-17 21:12 | HEMO/ONC PROGRESS NOTE ---
DATE: 09/17/2018 SUBJECTIVE: Ms Rivera is lying in hospital bed with a family member at bedside. She is in no acute distress. OBJECTIVE: Temperature 97.6 degrees, heart rate 60, respirations 20, blood pressure 168/80, O2 saturation 100 on nasal cannula at 2 L. LABS AND STUDIES: White blood cells 11.59, hemoglobin 11.1, hematocrit 35.2, platelet count 9000, sodium 136, potassium 3.8, chloride 98, CO2 29, BUN 29, creatinine 0.6, glucose 143.CV: S1, S2 heard. No murmurs, gallops, rubs appreciated. Respiratory: Patient has basilar crackles noted. Left worse than the right. Otherwise no wheezing or rhonchi noted. Gastrointestinal: Abdomen soft, positive bowel sounds. Musculoskeletal: No bony abnormalities noted. No peripheral edema in bilateral lower extremities noted. Skin: Patient continues have petechiae, widespread bruising. ASSESSMENT AND PLAN: 1. Idiopathic thrombocytopenia, refractory. Thus far high-dose steroids and 5 doses of intravenous immunoglobulin have not resulted in the patient's platelets improving. We are going to go ahead and asked pathology to review the patient's peripheral smear. We also are going to go ahead and get the patient ready for Rituxan treatment. Hopefully will be able to start this tomorrow. Discussed treatment with the patient today and she is agreeable. 2. New onset shortness of breath. Patient's O2 saturation is adequate. She did receive lots of fluid with her intravenous immunoglobulin. Evidently she was previously on Lasix which has been stopped due to frequent urination and fear of risk of fall. We will go ahead and give the patient 20 mg of IV Lasix right now. We are going to go ahead and also check a chest x- ray for further evaluation. 3. Paroxysmal atrial flutter/fibrillation. Patient will continue off of Xarelto due to her profound thrombocytopenia as per above. 4. Mild leukocytosis. This is believed to be steroid effect. Continue to monitor. 5. Irritation of the nares. Patient to keep her nasal passage moist. We discussed not manipulating her nose too much in fear of her having a nosebleed. Dictated by THI Fletcher for Danielle Yee MD cc: MD Tyrone De Los Santos Jr, MD I have seen and examined the patient and the above note reflects my history, physical, assessment and plan. Danielle [facility]ee [facility]
[2018-09-18] MEDS: PROTONIX PO SCH (06:47)
[2018-09-18] MEDS: SYNTHROID PO SCH (06:47)
[2018-09-18] MEDS: LOPRESSOR PO SCH ×3 (09:52→22:15)
[2018-09-18] MEDS: ROBAXIN PO SCH ×3 (09:52→22:14)
[2018-09-18 11:03] LABS: BASO# 0.02 X1000 (0.0-0.2); BASO% 0.2 % (0.0-0.8); EOS# 0.06 X1000 (0.0-0.7); EOS% 0.6 % (0.0-10.0); HEMOGLOBIN 11.3 g/dL (12.0-16.0); IMM GRAN# 0.42 X1000 (0.0-0.04); IMM GRAN% 3.9 % (0.0-0.5); LYMPH# 1.64 X1000 (1.2-3.4); LYMPH% 15.3 % (20.5-51.1); MCH 27.1 PG (27-31); MCHC 31.4 g/dL (33-37); MCV 86.3 FL (81-99); MONO# 0.99 X1000 (0.11-0.59); MONO% 9.2 % (1.7-9.3); NEUT% 70.8 % (42.2-75.2); PLT < 6 X1000 (130-400); RBC 4.17 XMIL (4.2-5.4); RDW 17.5 % (11.5-14.5); WBC 10.73 X1000 (4.8-10.8)
[2018-09-18 11:15] LABS: BANDS 2 % (0-1); LYMPHS 14 % (21-51); MONO 4 % (1-9); SEGS 78 % (42-75)
[2018-09-18] MEDS ORDERED: TYLENOL PO ONE ×2 (11:40→12:30)
[2018-09-18] MEDS ORDERED: BENADRYL IV ONE (11:41)
[2018-09-18 12:25] LABS: HEPATITIS PROFILE ACUTE SEE COMMENTS
--- NOTE | 2018-09-18 12:26 | PROGRESS NOTE ---
DATE: 09/18/2018 SUBJECTIVE: The patient remains stable. She still has some soreness at her nose. No severe bleeding. Still remains minimally short of breath. Did receive some IV Lasix yesterday. OBJECTIVE: Vital signs: Afebrile, pulse 116, respirations 15, blood pressure 144/68. O2 saturation on room air 93% to 94%. CV: Irregularly, irregular. Lungs: Fairly clear. Abdomen: Soft, nontender, nondistended. Extremities: No calf tenderness, cords, or edema. Petechiae over legs seems to have improved slightly. Neurologic: Cranial nerves are intact. She moves all extremities well. Chronic deafness. LAB: Shows platelet count less than 6. White count 10.7, hemoglobin 11.3. ASSESSMENT: 1. Thrombocytopenia. 2. Paroxysmal atrial fibrillation/flutter off Xarelto secondary to #1. 3. Hypothyroidism. 4. Chronic deafness. 5. Osteoarthritis. PLAN: We will resume her home dosage of Lasix 20 mg p.o. daily. Continue to leave her off oxygen if unless absolutely necessary as this is irritating her nose. Plans for Rituxan start-up noted per Dr. eYe. cc: MD Tyrone Barrera Jr, MD
[2018-09-18] MEDS ORDERED: NS 250 ML ONE (12:52)
[2018-09-18] MEDS: LASIX PO SCH (13:28)
[2018-09-18] MEDS ORDERED: PEPCID IV ONE (13:30)
[2018-09-18] MEDS ORDERED: BENADRYL INJ ONE (13:30)
[2018-09-18] MEDS ORDERED: SODIUM CHLORIDE 0.9% INJ ONE (13:30)
[2018-09-18] MEDS ORDERED: NS IV ONE (14:30)
[2018-09-18] MEDS ORDERED: RITUXAN IV ONE (14:30)
[2018-09-18 18:06] LABS: BASO# 0.03 X1000 (0.0-0.2); BASO% 0.3 % (0.0-0.8); EOS% 0.9 % (0.0-10.0); HEMATOCRIT 35.7 % (37.0-47.0); HEMOGLOBIN 11.1 g/dL (12.0-16.0); IMM GRAN# 0.23 X1000 (0.0-0.04); LYMPH# 1.84 X1000 (1.2-3.4); LYMPH% 16.1 % (20.5-51.1); MCH 26.7 PG (27-31); MCHC 31.1 g/dL (33-37); MONO% 7.9 % (1.7-9.3); MPV 11.3 FL (7.4-10.4); NEUT# 8.34 X1000 (1.4-6.5); NEUT% 72.8 % (42.2-75.2); RBC 4.15 XMIL (4.2-5.4); RDW 17.8 % (11.5-14.5); WBC 11.44 X1000 (4.8-10.8)
[2018-09-18 18:12] LABS: PLT 7 X1000 (130-400)
[2018-09-18 18:34] LABS: BANDS 2 % (0-1); LYMPHS 23 % (21-51); MONO 5 % (1-9); SEGS 70 % (42-75)
[2018-09-18 18:35] LABS: HYPOCHROM 1+
[2018-09-18] MEDS ORDERED: LANOXIN IV ONE (20:00)
[2018-09-19] MEDS ORDERED: AYR NASAL SPRAY NAS PRN (00:13)
[2018-09-19] MEDS: SYNTHROID PO SCH (06:55)
[2018-09-19] MEDS: PROTONIX PO SCH (06:55)
[2018-09-19] MEDS: ROBAXIN PO SCH ×3 (09:02→22:43)
[2018-09-19] MEDS: LOPRESSOR PO SCH ×2 (09:02→21:50)
[2018-09-19] MEDS: LASIX PO SCH (09:02)
[2018-09-19 09:47] LABS: BASO# 0.02 X1000 (0.0-0.2); BASO% 0.2 % (0.0-0.8); HEMATOCRIT 35.4 % (37.0-47.0); HEMOGLOBIN 11.1 g/dL (12.0-16.0); IMM GRAN# 0.21 X1000 (0.0-0.04); IMM GRAN% 2.1 % (0.0-0.5); LYMPH# 1.24 X1000 (1.2-3.4); LYMPH% 12.4 % (20.5-51.1); MCH 27.3 PG (27-31); MCHC 31.4 g/dL (33-37); MCV 87.2 FL (81-99); MONO# 0.88 X1000 (0.11-0.59); MONO% 8.8 % (1.7-9.3); NEUT# 7.57 X1000 (1.4-6.5); NEUT% 75.5 % (42.2-75.2); PLT 11 X1000 (130-400); RBC 4.06 XMIL (4.2-5.4); RDW 17.9 % (11.5-14.5); WBC 10.02 X1000 (4.8-10.8)
[2018-09-19] MEDS ORDERED: NPLATE SUBQ ONE (12:15)
--- NOTE | 2018-09-19 12:57 | PROGRESS NOTE ---
DATE: 09/19/2018 SUBJECTIVE: Patient overall stable. She is feels tired from just being in the hospital. She received Rituxan and endplate per Dr. Singh yesterday. She did have episode of atrial fibrillation with rapid ventricular response with a heart rate of 160. After taking IV Benadryl 50 mg to premedicate for the Rituxan, the heart rate came down with 1 dose of digoxin at 0.25 mg IV. OBJECTIVE: Vital Signs: Afebrile, pulse 78, respirations 16, blood pressure 118/91, O2 saturation 98%. CV: Irregularly irregular. Lungs: Fairly clear. Abdomen: Soft, nontender. Extremities: No edema, calf tenderness or cords. Neurologic: Cranial nerves intact. Nonfocal. LABORATORY: White count 10, hemoglobin 11.1, platelets 11,000. ASSESSMENT: 1. Refractory immune thrombocytopenia. 2. Paroxysmal atrial fibrillation/flutter off Xarelto secondary to #1 with one episode of rapid ventricular rate. 3. Hypothyroidism. 4. Chronic deafness. 5. Osteoarthritis. PLAN: Patient back on her Lasix, has improved with shortness of breath, but she is having to get up and go to the restroom frequently with help from the nursing staff. We will place Oakes catheter at patient request, continue her Synthroid. She is on Protonix for GI prophylaxis and will continue low-dose digoxin now orally and continue her metoprolol 25 mg b.i.d. She will be receiving additional Rituxan per Oncology. cc: MD Tyrone Barrera Jr, MD
[2018-09-19] MEDS: LANOXIN PO SCH (13:06)
[2018-09-19] MEDS ORDERED: BENADRYL IV ONE (13:17)
[2018-09-19] MEDS ORDERED: TYLENOL PO ONE (13:19)
[2018-09-19] MEDS ORDERED: PEPCID IV ONE (13:22)
[2018-09-19] MEDS ORDERED: SODIUM CHLORIDE 0.9% INJ ONE (13:22)
--- NOTE | 2018-09-20 04:20 | HEMO/ONC PROGRESS NOTE ---
DATE: 09/18/2018 SUBJECTIVE: Ms. Rivera is lying in her hospital bed, resting. She is in no acute distress. OBJECTIVE: Vital Signs: Temperature is 98.0 degrees, heart rate 116, respiratory rate 15, blood pressure 144/60, O2 saturation 94% on room air. Laboratory Data: White blood cells 10.73, hemoglobin 11.3, hematocrit 36.0, platelet count less than 6000. Hepatitis panel shows nonreactive. Physical Examination: CV: Tachycardia noted. Irregularly irregular rhythm noted. Respiratory: Chest is clear. Some mild coarse breath sounds noted. No wheezing or rhonchi noted. Gastrointestinal: Abdomen is soft with positive bowel sounds. Extremities: No edema. ASSESSMENT AND PLAN: 1. Idiopathic thrombocytopenia. Patient's platelet count is less than 6000 today. We are going to go ahead and give her a unit of platelets. We are planning to initiate Rituxan later today after she receives the platelets. We will need to follow her platelet count going forward and continue to provide transfusions as needed. Typically, Rituxan is once weekly x4. We are also going to go ahead and start the patient on Nplate in the next 1 to 2 days. 2. Shortness of breath. Patient has been having issues with fluid. We will monitor closely. Continue to use Lasix as needed. Management per primary team. 3. Atrial fibrillation. Patient is currently off Xarelto due to her profound thrombocytopenia. Dictated by THI Fletcher for Danielle Yee MD cc: MD Tyrone De Los Santos Jr, MD I have seen and examined the patient and the above note reflects my history, physical, assessment and plan. She has refractory ITP. Will proceed with salvage therapy with Rituxan and Nplate. Danielle Yee MD [facility]
[2018-09-20] MEDS: SYNTHROID PO SCH (06:03)
[2018-09-20] MEDS: PROTONIX PO SCH (06:04)
--- NOTE | 2018-09-20 06:21 | HEMO/ONC PROGRESS NOTE ---
DATE: 09/19/2018 SUBJECTIVE: Ms. Rivera is lying in her hospital bed. She is in no acute distress. OBJECTIVE: Vital Signs: Temperature 97.9 degrees, heart rate 78, respirations 16, blood pressure 118/91, O2 saturation 98% on 2 L nasal cannula. Labs and Studies: White blood cells 10.02, hemoglobin 11.1, hematocrit 35.4, platelet count 11,000. PHYSICAL EXAMINATION: CV: Irregularly irregular heart rate noted. Rate controlled. Respiratory: Chest is clear. Some coarse breath sounds noted. Gastrointestinal: Abdomen is soft. Positive bowel sounds. Extremities: No edema noted. ASSESSMENT AND PLAN: 1. Idiopathic thrombocytopenia. The patient is now status post high-dose steroids, as well as 5 doses of IVIG. However, her platelet count has not recovered. We are going to move on with Rituxan. Patient was supposed to get Rituxan last evening, but developed atrial fibrillation with RVR, and Rituxan was not given. We will proceed with Rituxan today. We also are going to start the patient on Nplate this afternoon as well. We will monitor her platelet count daily. 2. Atrial fibrillation with rapid ventricular rate. Patient is now rate controlled. Management per the primary team. She is currently on a low dose of digoxin. 3. Shortness of breath. Believed to be related to volume overload. She is now receiving daily Lasix. 4. Anticoagulation. This is currently being held due to the patient's profound thrombocytopenia. Dictated by THI Fletcher for Danielle Yee MD cc: MD Tyrone De Los Santos Jr, MD I have seen and examined the patient and the above note reflects my history, physical, assessment and plan. Danielle GILBERT
[2018-09-20 07:21] LABS: BASO# 0.01 X1000 (0.0-0.2); BASO% 0.1 % (0.0-0.8); EOS# 0.02 X1000 (0.0-0.7); EOS% 0.1 % (0.0-10.0); HEMATOCRIT 37.6 % (37.0-47.0); HEMOGLOBIN 11.7 g/dL (12.0-16.0); IMM GRAN# 0.08 X1000 (0.0-0.04); IMM GRAN% 0.4 % (0.0-0.5); LYMPH# 0.44 X1000 (1.2-3.4); LYMPH% 2.4 % (20.5-51.1); MCH 27.5 PG (27-31); MCHC 31.1 g/dL (33-37); MCV 88.3 FL (81-99); MONO# 0.51 X1000 (0.11-0.59); MONO% 2.7 % (1.7-9.3); NEUT# 17.62 X1000 (1.4-6.5); NEUT% 94.3 % (42.2-75.2); PLT 6 X1000 (130-400); RBC 4.26 XMIL (4.2-5.4); RDW 18.4 % (11.5-14.5); WBC 18.68 X1000 (4.8-10.8)
[2018-09-20 07:42] LABS: AGAP 13; BUN 26 mg/dL (8-22); CALCIUM 8.2 mg/dL (8.8-10.2); CHLORIDE 96 mmol/L (98-107); COSMO 283; CREATININE 0.9 mg/dL (0.5-0.9); DIGOXIN < 0.3 ng/mL (0.9-2.0); ESTIMATED GFR 60; GLUCOSE 151 mg/dL (70-104); MAGNESIUM 1.6 mg/dL (1.5-2.7); PHOSPHORUS 3.2 mg/dL (2.7-4.5); POTASSIUM 3.5 mmol/L (3.5-5.1); SODIUM 138 mmol/L (136-145); TCO2 29 mmol/L (25-35)
[2018-09-20 08:31] LABS: BANDS 4 % (0-1); LYMPHS 6 % (21-51); SEGS 90 % (42-75)
[2018-09-20] MEDS: LANOXIN PO SCH (09:50)
[2018-09-20] MEDS: LOPRESSOR PO SCH ×2 (09:50→22:12)
[2018-09-20] MEDS: LASIX PO SCH (09:50)
[2018-09-20] MEDS: ROBAXIN PO SCH ×3 (09:50→22:15)
--- NOTE | 2018-09-20 12:21 | EKG Report ---
Test Performed on : 09/20/2018 12:17:24 PM Test Reason : Left shoulder pain Blood Pressure : / mmHG Vent. Rate : 099 BPM Atrial Rate : 441 BPM P-R Int : 000 ms QRS Dur : 080 ms QT Int : 286 ms P-R-T Axes : 000 074 066 degrees QTc Int : 367 ms Atrial fibrillation. Nonspecific T wave abnormality Abnormal ECG When compared with ECG of 20-SEP-2018 12:16, (Unconfirmed) No significant change was found Confirmed by Judit NAIK, Rubén Santamaria ([id number]) on 09/22/2018 10:35:33 AM
[2018-09-20] MEDS ORDERED: ZOSTRIX TOP PRN (12:54)
[2018-09-20] MEDS ORDERED: LANOXIN PO ONE (12:57)
--- NOTE | 2018-09-20 13:31 | Diag Imaging Result Doc PS360 ---
EXAM: CHEST-2 VIEWS HISTORY: fever TECHNIQUE: Chest two views COMPARISON: 09/17/2018 FINDINGS: The lungs are hyperexpanded with an increased AP diameter to the chest. There are small pleural effusions. The heart remains mildly enlarged. Mild central vascular prominence. There is basilar atelectasis. IMPRESSION: Emphysema with basilar atelectasis similar to the prior study. Electronically signed by De Singh 09/20/2018 1:29 PM
--- NOTE | 2018-09-20 13:32 | Diag Imaging Result Doc PS360 ---
EXAM: SHOULDER-LEFT HISTORY: lt shoulder pain TECHNIQUE: Two views COMPARISON: None. FINDINGS: No fracture. No dislocation. No separation at the acromioclavicular joint. IMPRESSION: Negative exam. Electronically signed by De Singh 09/20/2018 1:30 PM
--- NOTE | 2018-09-20 13:38 | PROGRESS NOTE ---
DATE: 09/20/2018 SUBJECTIVE: Patient complains of some left shoulder pain began during the night, making it difficult for her to sleep. She denies chest pains. No shortness of breath. No kay dysuria. She has Oakes catheter placed. OBJECTIVE: T-max 100 degrees, pulse 60s to 117, currently around 99.CV: Irregularly irregular. Lungs: CTA. Back: No CVA tenderness. Abdomen: Soft. Rule out minimal left lower quadrant tenderness. No mass or organomegaly. No rebound or guarding. Extremities: No calf tenderness, cords or edema. There is tenderness about the left shoulder, especially with any range of motion. Neurologic: Cranial nerves are intact. Chronic deafness. LABS: Platelets 6000, hemoglobin 11.7, white count 18.68, 94% neutrophils. Sodium 138, potassium 3.5, chloride 96, CO2 of 29, BUN 26, creatinine 0.9, glucose 151, calcium 8.2, phosphorus 3.3, magnesium 1.6. Digoxin level less than 0.3. EKG shows atrial fibrillation, heart rate 99. ASSESSMENT: 1. ITP, refractory now on Rituxan and endplate. 2. Paroxysmal atrial fibrillation/flutter off Xarelto with some marginal rapid ventricular rate. 3. Left shoulder pain thought musculoskeletal. 4. Hypothyroidism. 5. Chronic deafness. 6. Osteoarthritis. 7. Fever with leukocytosis. PLAN: Due to the latter we will check a cath UA with C Yanely. We will check chest x-ray and left shoulder x-ray. Trial of topical Zostrix to help with the shoulder along with therapy. Continue treatment of #1 per Oncology. Will increase digoxin to 0.25 mg daily and continue low-dose metoprolol that she is on. cc: MD Tyrone Barrera Jr, MD
[2018-09-20 18:40] LABS: URINE SOURCE CLEAN CATCH
[2018-09-20 19:19] LABS: BILIRUBIN URINE NEGATIVE (NEGATIVE); BLOOD URINE LARGE (NEGATIVE); COLOR YELLOW; GLUCOSE URINE NEGATIVE (NEGATIVE); KETONE URINE 10 mg/dL (NEGATIVE); LEUKOCYTES URINE MODERATE (NEGATIVE); NITRITE URINE NEGATIVE (NEGATIVE); PROTEIN URINE 50 mg/dL (NEGATIVE); SP GRAVITY URINE 1.019; TURBIDITY URINE HAZY (CLEAR); UR EPITHELIAL CELLS <10 /HPF (<10); URINE BACTERIA 1+ /HPF; URINE RBC TNTC /HPF (<10); URINE WBC TNTC /HPF (<10); UROBILINOGEN URINE NORMAL (NORMAL)
[2018-09-21] MEDS: PROTONIX PO SCH (06:08)
[2018-09-21] MEDS: SYNTHROID PO SCH (06:08)
[2018-09-21 09:20] LABS: BASO# 0.01 X1000 (0.0-0.2); BASO% 0.1 % (0.0-0.8); HEMATOCRIT 32.9 % (37.0-47.0); IMM GRAN# 0.06 X1000 (0.0-0.04); IMM GRAN% 0.5 % (0.0-0.5); LYMPH# 0.67 X1000 (1.2-3.4); LYMPH% 5.8 % (20.5-51.1); MCH 26.7 PG (27-31); MCHC 30.4 g/dL (33-37); MONO# 1.33 X1000 (0.11-0.59); MONO% 11.5 % (1.7-9.3); NEUT# 9.49 X1000 (1.4-6.5); NEUT% 82.1 % (42.2-75.2); PLT < 6 X1000 (130-400); RBC 3.74 XMIL (4.2-5.4); RDW 18.1 % (11.5-14.5); WBC 11.56 X1000 (4.8-10.8)
[2018-09-21] MEDS: LASIX PO SCH (09:33)
[2018-09-21] MEDS: LANOXIN PO SCH (09:33)
[2018-09-21] MEDS: ROBAXIN PO SCH ×3 (09:33→16:49)
[2018-09-21] MEDS: LOPRESSOR PO SCH ×2 (09:33→19:31)
[2018-09-21] MEDS: NORCO-5 PO PRN ×2 (13:16→19:31)
--- NOTE | 2018-09-21 13:58 | PROGRESS NOTE ---
DATE: 09/21/2018 SUBJECTIVE: Patient continues to have some pain at the left shoulder. We tried some Zostrix cream and she is on methocarbamol t.i.d. Dr. Singh has added Helen 5 to see if that will help. Her x-rays of her shoulder were negative. Cardiac enzymes and troponin levels negative. It does hurt with movement. OBJECTIVE: T-max 100.5 degrees, T current 97.5, pulse 100, and blood pressure 132/67. The patient does have some redness of her tongue and some white patches on the tongue noted. Cardiovascular: Irregularly irregular. Lungs: CTA. Abdomen: Soft and nontender. Extremities: No calf tenderness, cords or edema. Neurologic: Nonfocal. LABORATORY: White count 11.5, hemoglobin 10, and platelets less than 6. CKs range 17 to 27. Troponin's all less than 0.01 x 3. Urine culture so far no growth whereas urinalysis showed too numerous to count WBCs and RBCs. ASSESSMENT: 1. ITP refractory to treatment on Rituxan and NPLATE per Dr. Yee. 2. Left shoulder pain thought musculoskeletal. 3. Low-grade fever, rule out urinary tract infection. 4. Thrush. 5. PAF/flutter off Xarelto due to #1. 6. Hypothyroidism. 7. Chronic deafness. 8. Osteoarthritis. PLAN: We will follow the urine culture, and if positive her UTI, we will start antibiotics. For now, add nystatin suspension swish and swallow. Continue topical Zostrix and methocarbamol for the shoulder pain and Helen [address] Yee. She needs to remain in the hospital due to excessively low platelet count, and we have counseled her and her family regarding fall risk and ways to avoid due to her low platelet count. Continue digoxin and we will repeat digoxin, CBC, and BMP in the morning. Continue metoprolol as well. cc: MD Tyrone Barrera Jr, MD
[2018-09-21] MEDS ORDERED: NS 500 ML ONE (16:57)
[2018-09-21] MEDS ORDERED: MYCOSTATIN SUSP PO SCH (17:00)
--- NOTE | 2018-09-22 00:14 | HEMO/ONC PROGRESS NOTE ---
DATE: 09/21/2018 SUBJECTIVE: Ms. Rivera is resting in her hospital bed. She has a family member at bedside. She appears to be in no acute distress. OBJECTIVE: Vital Signs: Temperature 97.5 degrees, with a T-max overnight of 100.5. Heart rate 100. Respirations 18. Blood pressure 132/67. Oxygen saturation is 98% on room air. Labs and Studies: White blood cells 11.56, hemoglobin 10.0, hematocrit 32.9, platelet count less than 6000. PHYSICAL EXAMINATION: CV: Tachycardia noted, with regular rhythm. Respiratory : Chest is clear, with normal respiratory effort. Gastrointestinal: Soft. Positive bowel sounds. Musculoskeletal: The patient does have some left shoulder pain. Otherwise, she has no bony abnormalities and no other complaints. Extremities: No edema. ASSESSMENT AND PLAN: 1. Idiopathic thrombocytopenic purpura, refractory. The patient is status post Rituxan and Nplate earlier this week. Our recommendation is that we continue to transfuse 1 unit of platelets for any active bleeding, or for a platelet count less than 10,000. It can take Rituxan up to weeks to show effect. Nplate is a weekly injection. We will need to continue to monitor her platelet count daily. Continue to provide transfusion support , per the parameters above. As soon as her platelet count improves, we recommend discharge, with outpatient treatment. 2. Left shoulder pain. This previously had been x-rayed, and is negative. Believed to be musculoskeletal from inactivity and deconditioning. We will go ahead and start the patient on [place] [address] Yee did discuss with Dr. Braden. 3. Atrial fibrillation. Patient is off of all anticoagulation, given her profound thrombocytopenia. She is on Lopressor and digoxin. Management per Dr. Braden's steam. 4. Low-grade fever, with elevated white count. Urine culture pending. The patient's UA looked a little messy. However, the urine culture is currently pending. Treat based off of the urine culture if needed. ADDENDUM: We are going to sign off for the weekend. Please transfuse and monitor platelets, as per #1. We will be available as needed. We will resume regular followup on Monday. Dictated by THI Fletcher for Danielle Yee MD cc: MD Tyrone De Los Santos Jr, MD The above note reflects my history, exam, assessment and plan. Danielle Yee MD [facility]
[2018-09-22] MEDS: NORCO-5 PO PRN ×2 (04:11→12:40)
[2018-09-22] MEDS: LOPRESSOR PO SCH ×2 (05:12→10:25)
[2018-09-22] MEDS: PROTONIX PO SCH (06:30)
[2018-09-22] MEDS: SYNTHROID PO SCH (06:31)
[2018-09-22 06:58] LABS: AGAP 10; BUN 22 mg/dL (8-22); CALCIUM 8.1 mg/dL (8.8-10.2); CHLORIDE 95 mmol/L (98-107); COSMO 277; CREATININE 0.7 mg/dL (0.5-0.9); DIGOXIN 1.3 ng/mL (0.9-2.0); ESTIMATED GFR > 60; GLUCOSE 170 mg/dL (70-104); POTASSIUM 3.5 mmol/L (3.5-5.1); SODIUM 135 mmol/L (136-145); TCO2 30 mmol/L (25-35)
[2018-09-22 07:11] LABS: BASO# 0.01 X1000 (0.0-0.2); BASO% 0.1 % (0.0-0.8); EOS# 0.01 X1000 (0.0-0.7); EOS% 0.1 % (0.0-10.0); HEMATOCRIT 31.1 % (37.0-47.0); HEMOGLOBIN 9.4 g/dL (12.0-16.0); IMM GRAN# 0.03 X1000 (0.0-0.04); IMM GRAN% 0.2 % (0.0-0.5); LYMPH# 0.32 X1000 (1.2-3.4); LYMPH% 2.5 % (20.5-51.1); MCH 26.7 PG (27-31); MCHC 30.2 g/dL (33-37); MCV 88.4 FL (81-99); MONO# 1.05 X1000 (0.11-0.59); MONO% 8.4 % (1.7-9.3); NEUT# 11.13 X1000 (1.4-6.5); NEUT% 88.7 % (42.2-75.2); PLT 10 X1000 (130-400); RBC 3.52 XMIL (4.2-5.4); WBC 12.55 X1000 (4.8-10.8)
[2018-09-22 07:18] LABS: ANISOCYTOSIS 1+; BANDS 4 % (0-1); HYPOCHROM 1+; MONO 2 % (1-9); SEGS 94 % (42-75)
[2018-09-22] MEDS: ROBAXIN PO SCH ×3 (10:22→16:39)
[2018-09-22] MEDS: LASIX PO SCH (10:22)
[2018-09-22] MEDS: LANOXIN PO SCH (10:22)
--- NOTE | 2018-09-22 14:34 | PROGRESS NOTE ---
DATE: 09/22/2018 SUBJECTIVE: An 83-year-old white female, patient of Dr. Braden. Admitted to the hospital on 09/08/2018 for thrombocytopenia. He has been diagnosed with ITP versus questionable MDS. Interval history was reviewed. REVIEW OF SYSTEMS: Not able to obtain. Patient is demented. According to the nurses the patient did receive a unit of platelets yesterday. PAST MEDICAL HISTORY: Reviewed. PAST SURGICAL HISTORY: Reviewed. MEDICINES: Reviewed. ALLERGIES: Morphine. PHYSICAL EXAMINATION: On examination, temp is 97 degrees, tachycardic 128 x 61.HEENT: Within normal limits. Chest: Bilateral air entry. Heart: Irregular heart sounds. Abdomen: Belly is soft, nontender. Diaper is present. Extremities: Small bruises noted in the extremities. No obvious deficits. LABORATORY DATA: CBC: White cell count 12, hematocrit 31, platelets 10,000. SMA-7: Sodium 135, potassium 3.5, chloride 95, BUN 22, creatinine 0.7, glucose 170. Cardiac enzymes were negative. Urine cultures were negative. Chest x-ray: COPD. Shoulder x-rays: Within normal limits. EKG atrial fibrillation. ASSESSMENT AND PLAN: 1. Idiopathic thrombocytopenia refractory for treatment. Conventional treatment with steroids. Immunoglobulin status post IV Rituxan 500 mg last week status post PLT transfusion. Romiplostim 15 mcg once. Status post unit of packed RBCs. Continue to monitor. 2. Atrial fibrillation, off Xarelto. On digoxin 250 mcg daily rate control, Lasix 20 daily, metoprolol 25 p.o. b.i.d. 3. Shoulder pain, topical capsaicin cream. 4. Hypothyroidism Synthroid 45 mcg daily. 5. GI prophylaxis Protonix 40 daily. 6. Continue to monitor platelet count on a daily basis. LEVEL OF DOCUMENTATION: 39 minutes. cc: MD Tyrone Bone Jr, MD MTDD
[2018-09-22] MEDS: TYLENOL PO PRN (16:39)
[2018-09-23] MEDS: LOPRESSOR PO SCH ×3 (01:56→20:04)
[2018-09-23 05:47] LABS: URINE SOURCE VOIDED
[2018-09-23 05:50] LABS: BILIRUBIN URINE NEGATIVE (NEGATIVE); BLOOD URINE LARGE (NEGATIVE); COLOR ORANGE; GLUCOSE URINE NEGATIVE (NEGATIVE); KETONE URINE TRACE mg/dL (NEGATIVE); LEUKOCYTES URINE MODERATE (NEGATIVE); NITRITE URINE NEGATIVE (NEGATIVE); PROTEIN URINE 200 mg/dL (NEGATIVE); SP GRAVITY URINE 1.029; TURBIDITY URINE TURBID (CLEAR); UROBILINOGEN URINE 2 mg/dL (NORMAL)
[2018-09-23 05:57] LABS: URINE BACTERIA 3+ /HPF; URINE RBC TNTC /HPF (<10); URINE WBC TNTC /HPF (<10)
[2018-09-23 06:05] LABS: UR EPITHELIAL CELLS <10 /HPF (<10)
[2018-09-23 06:06] LABS: URINE CASTS NONE SEEN; URINE SMALL ROUND CELLS NONE SEEN; URINE YEAST NONE SEEN
[2018-09-23 06:07] LABS: URINE CRYSTALS NONE SEEN
[2018-09-23] MEDS ORDERED: VANCOMYCIN IV PER PHARMACY MISC SCH (06:15)
[2018-09-23] MEDS: SYNTHROID PO SCH (07:02)
[2018-09-23] MEDS: PROTONIX PO SCH (07:02)
[2018-09-23] MEDS: TYLENOL PO PRN ×3 (07:46→23:51)
--- NOTE | 2018-09-23 07:49 | Diag Imaging Result Doc PS360 ---
EXAM: CHEST-PORTABLE INDICATION: fever TECHNIQUE: One view COMPARISON: 09/20/2018 FINDINGS: Lung volumes are lower than the previous study. There is pulmonary venous congestion that appears slightly worse. There is evidence of a trace left pleural effusion that is stable. No other new consolidations are identified. Cardiac silhouette is stable. IMPRESSION: Slight worsening of pulmonary venous congestion. Electronically signed by Chance Escobedo 09/23/2018 7:47 AM
[2018-09-23 07:53] LABS: BASO# 0.01 X1000 (0.0-0.2); BASO% 0.1 % (0.0-0.8); HEMATOCRIT 33.8 % (37.0-47.0); HEMOGLOBIN 10.2 g/dL (12.0-16.0); IMM GRAN# 0.05 X1000 (0.0-0.04); IMM GRAN% 0.4 % (0.0-0.5); LYMPH# 0.18 X1000 (1.2-3.4); LYMPH% 1.6 % (20.5-51.1); MCH 26.8 PG (27-31); MCHC 30.2 g/dL (33-37); MCV 88.9 FL (81-99); MONO# 0.63 X1000 (0.11-0.59); MONO% 5.5 % (1.7-9.3); MPV 9.7 FL (7.4-10.4); NEUT# 10.64 X1000 (1.4-6.5); NEUT% 92.4 % (42.2-75.2); PLT 6 X1000 (130-400); RDW 17.2 % (11.5-14.5); WBC 11.51 X1000 (4.8-10.8)
[2018-09-23] MEDS: ROBAXIN PO SCH ×3 (08:00→20:04)
[2018-09-23] MEDS ORDERED: VANCOMYCIN 1,300 MG in NS 250 ML IV ONE (08:00)
[2018-09-23] MEDS: LASIX PO SCH (08:01)
[2018-09-23] MEDS: LANOXIN PO SCH (08:01)
[2018-09-23] MEDS: NORCO-5 PO PRN ×3 (08:05→23:51)
[2018-09-23 08:10] LABS: CALCIUM 8.4 mg/dL (8.8-10.2); POTASSIUM 3.9 mmol/L (3.5-5.1)
[2018-09-23 08:29] LABS: BANDS 10 % (0-1); LYMPHS 1 % (21-51); MONO 3 % (1-9); SEGS 86 % (42-75)
[2018-09-23 08:30] LABS: LARGE PLATELETS 1+
--- NOTE | 2018-09-23 16:30 | PROGRESS NOTE ---
DATE: 09/23/2018 SUBJECT: Patient is running fever 103, tachycardic since last night, blood cultures, urine cultures were done. Family was at bedside. Patient complaining of left shoulder pain. Upon questioning she denies of any sore throat. No cough. No dysuria. The patient is morbidly sick, sleeping. EXAMINATION: Temperature is 103 degrees, pulse is 120, blood pressure is 140/ 81, weight 118 pounds.HEENT: Within normal limits. Left shoulder I did not see any active synovitis. The patient is extremely cachectic. Chest: Is clear. Heart: Irregular heart sounds. Belly: Is soft, nontender. Extremities: Some trace petechiae and bruises noted. INVESTIGATIONS: CBC. White cell count 11, hematocrit 33, platelets 6000 . SMA Sodium 139, potassium 3.9, BUN 35, creatinine 1.0. Urinalysis positive for infection. Microbiology, blood cultures are positive for gram-positive cocci. Urine cultures also gram- positive cocci 20-30,000. ASSESSMENT AND PLAN: 1. Idiopathic thrombocytopenia purpura refractory to regular treatment, had Rituxan treatment and nplate, platelet transfusion as needed by licensed direct entry midwife. 2. Fever. Blood cultures are positive. Started on IV vancomycin. 3. Left shoulder pain, rule out sepsis and septic joint. Will get a bone scan in the morning. 4. Hypothyroidism on Synthroid. 5. Atrial fibrillation off Xarelto basically rate control with metoprolol. The level of documentation is 28 minutes. cc: MD Tyrone Bone Jr, MD MTDD
[2018-09-23] MEDS ORDERED: NS 250 ML ONE (23:22)
[2018-09-24] MEDS: SYNTHROID PO SCH (06:37)
[2018-09-24] MEDS: PROTONIX PO SCH (06:37)
[2018-09-24 07:36] LABS: CALCIUM 8.6 mg/dL (8.8-10.2); CREATININE 1.1 mg/dL (0.5-0.9); POTASSIUM 4.1 mmol/L (3.5-5.1)
[2018-09-24] MEDS: LANOXIN PO SCH ×2 (08:37→10:35)
[2018-09-24] MEDS: NORCO-5 PO PRN ×3 (08:38→22:36)
[2018-09-24] MEDS: LASIX PO SCH (10:35)
[2018-09-24] MEDS: ROBAXIN PO SCH ×3 (10:36→16:13)
[2018-09-24] MEDS: LOPRESSOR PO SCH ×2 (10:36→22:36)
[2018-09-24 11:32] LABS: BASO# 0.01 X1000 (0.0-0.2); BASO% 0.1 % (0.0-0.8); HEMATOCRIT 28.7 % (37.0-47.0); HEMOGLOBIN 8.8 g/dL (12.0-16.0); IMM GRAN% 1.2 % (0.0-0.5); LYMPH# 0.23 X1000 (1.2-3.4); LYMPH% 2.8 % (20.5-51.1); MCH 26.9 PG (27-31); MCHC 30.7 g/dL (33-37); MCV 87.8 FL (81-99); MONO# 0.38 X1000 (0.11-0.59); MONO% 4.5 % (1.7-9.3); NEUT# 7.64 X1000 (1.4-6.5); NEUT% 91.4 % (42.2-75.2); RBC 3.27 XMIL (4.2-5.4); RDW 17.5 % (11.5-14.5); WBC 8.36 X1000 (4.8-10.8)
[2018-09-24 11:36] LABS: PLT < 6 X1000 (130-400)
--- NOTE | 2018-09-24 12:58 | Diag Imaging Result Doc PS360 ---
EXAM: 3 PHASE BONE SCAN 09/24/2018 HISTORY: Thrombocytopenia/Left Shoulder Pain and Infection TECHNIQUE: Three phase bone scan, 29 mCi of technetium 99m MDP COMMENT: The study was performed over the chest. There is normal distribution of blood pool activity without evidence of abnormal flow or blood pool activity in the shoulders. There is increased static bone activity in both shoulders and both sternoclavicular joints. IMPRESSION: Apparent degenerative arthritis without evidence of inflammatory or infectious arthritis. Electronically signed by Wallace Thayer 09/24/2018 12:56 PM
[2018-09-24] MEDS ORDERED: NS + KCL 20 MEQ 1,000 ML IV SCH (13:30)
[2018-09-24 13:32] LABS: INR 1.32; PROTIME 17.4 Seconds (11.0-16.0)
[2018-09-24 13:33] LABS: PTT 34.3 Seconds (22.3-41.8)
[2018-09-24 13:44] LABS: D-DIMER 7.31 ug/mLFEU (0.0-0.52)
--- NOTE | 2018-09-24 14:04 | Diag Imaging Result Doc PS360 ---
CT HEAD W/O CONTRAST - 09/24/2018 INDICATION: ms change/thrombocytopenia COMPARISON: 01/01/2012 FINDINGS: There has been perhaps slight increase in size of the large posterior fossa mass. This appears extra-axial and there is significant peripheral calcification. This now measures 3.1 x 4.6 cm, previously measuring 2.8 x 4.3 cm in AP and lateral dimensions. Stable old lacunar in the midbrain. There may be some trace faint subarachnoid hemorrhage in the superior right frontal lobe. No midline shift. There is slight worsening periventricular white matter chronic microvascular disease. IMPRESSION: Probable trace subarachnoid hemorrhage in the superior left cerebral hemisphere. This report was discussed with RT Stormy on 09/24/2018 at 2:02 PM and was readback. This exam was performed using automated exposure control, adjustment of mA or kV according to patient size, and/or use of iterative reconstruction technique Electronically signed by Joce Sim 09/24/2018 2:02 PM
[2018-09-24] MEDS ORDERED: NS 250 ML ONE (14:45)
[2018-09-24] MEDS ORDERED: SOLU-MEDROL IV ONE (15:00)
--- NOTE | 2018-09-24 17:31 | HEMO/ONC PROGRESS NOTE ---
DATE: 09/24/2018 SUBJECTIVE: Ms Rivera is lying in her hospital bed. She is not responsive. Her eyes are open but she does acknowledge my presence. Her [id number] is at bedside reports patient has been quite confused over the last couple days. OBJECTIVE: Vital Signs: Temperature 97.5 degrees, heart rate 93, respirations 24, blood pressure 125/47, O2 saturation 98% on 2 L nasal cannula. LABS AND STUDIES: White blood cells 8.36, hemoglobin 8.8, hematocrit 28.7, platelet count less than 6000, sodium 142, potassium 4.1, chloride 99, CO2 30, BUN 61, creatinine 1.1, glucose 224.CV: S1, S2 heard. Irregular rhythm noted. Respiratory: Coarse breath sounds bilaterally. No wheezing noted. Gastrointestinal: Abdomen soft, positive bowel sounds. Extremities: No edema noted. ASSESSMENT AND PLAN: 1. Idiopathic thrombocytopenia. Patient's platelet count continues to be less than 6000. She has already received high-dose steroids as well as intravenous immunoglobulin. Those were not effective. She is now status post her first cycle of Rituxan as well as Nplate injection last week. These can be repeated weekly as able. We are going to go ahead and give her a unit of platelets today. We are going to check a DIC panel given that she is now acutely ill. Will follow up on those results and plan to provide more support as needed. The patient is not a candidate for splenectomy at this time. 2. Bacteremia and urinary tract infection. Patient is on intravenous vancomycin per the primary team. Continue follow blood cultures. Continue treatment. 3. Atrial fibrillation. Rate controlled. Patient is on digoxin. Holding Xarelto given her profound thrombocytopenia. 4. Altered mental status. Could be secondary to urinary tract infection and bacteremia. Head CT ordered. Follow up on those results. 5. Left shoulder pain. X-rays previously negative. Bone scan has been ordered , follow up on those as well. 6. Decubitus ulcer. The patient's [id number] reports that she has a decubitus ulcer. Go ahead and consult wound care to come by and look and manage as indicated. 7. Disposition. Patient is do not resuscitate level 1. Discussed with the [id number] today that the patient's overall status has significantly declined since we last saw her on Monday. Will continue to follow along and continue to adjust our treatment plan as indicated. Dictated by THI Fletcher for Danielle Yee MD cc: MD Tyrone De Los Santos Jr, MD The above note reflects my history, exam, assessment and plan. Danielle Yee MD [facility]
--- NOTE | 2018-09-24 17:42 | PROGRESS NOTE ---
DATE: 09/24/2018 SUBJECTIVE: The patient the past 2 days per her sitter has not been doing well. She has had less responsiveness at times. OBJECTIVE: Vital Signs: T-max 103.1, T current 97.5, pulse 93, respirations 24 , blood pressure 125/47, O2 sat on 2 L 98%. HEENT: PERRL. EOMI. The patient will respond and look about. She is deaf, so it makes communication somewhat difficult. She is less responsive and less alert today than she had been in the recent past. Cardiovascular: Irregularly irregular. Lungs: CTA. Abdomen: Soft, nontender. Extremities: No calf tenderness, cords or edema. Neurologic: Again, patient moves all extremities well. She does have some lack of focus. LABORATORY: White count 8.36, hemoglobin 8.8, platelets less than 6000. Sodium 142, potassium 4.1, chloride 99, CO2 30, BUN 61, creatinine 1.1, glucose 224, calcium 8.6. Bone scan shows degenerative arthritis in the shoulder without evidence of infectious or inflammatory process at the left shoulder and by family report she has been able to move her shoulder with physical therapy much better, not complaining of pain there, although she complains of diffuse pains and is requiring some pain medication. ASSESSMENT: 1. Mental status change. 2. ITP, refractory to treatment. 3. Fever with MSSA staph in her urine and blood cultures. 4. Left shoulder pain, improved. 5. Hypothyroidism. 6. Chronic atrial fibrillation, off Xarelto due to thrombocytopenia. PLAN: We will check CT head without contrast to rule out hemorrhage and also will check echocardiogram. She has been placed on IV vancomycin per Dr. Hunter and she will remain on that and plans are being made for possible repeat Rituxan and N- plate treatment in 2 days per federal judge. cc: MD Tyrone Barrera Jr, MD MTDD
[2018-09-24] MEDS ORDERED: LASIX IV ONE (18:40)
[2018-09-24] MEDS: FLOMAX PO SCH (22:35)
[2018-09-25] MEDS: NORCO-5 PO PRN ×3 (00:42→14:53)
[2018-09-25] MEDS: PROTONIX PO SCH (06:51)
[2018-09-25] MEDS: SYNTHROID PO SCH (06:51)
[2018-09-25 07:38] LABS: BASO# 0.01 X1000 (0.0-0.2); BASO% 0.1 % (0.0-0.8); EOS# 0.02 X1000 (0.0-0.7); EOS% 0.2 % (0.0-10.0); HEMATOCRIT 31.5 % (37.0-47.0); HEMOGLOBIN 9.5 g/dL (12.0-16.0); IMM GRAN# 0.18 X1000 (0.0-0.04); IMM GRAN% 1.9 % (0.0-0.5); LYMPH# 0.23 X1000 (1.2-3.4); LYMPH% 2.4 % (20.5-51.1); MCH 26.6 PG (27-31); MCHC 30.2 g/dL (33-37); MCV 88.2 FL (81-99); MONO# 0.41 X1000 (0.11-0.59); MONO% 4.3 % (1.7-9.3); NEUT# 8.65 X1000 (1.4-6.5); NEUT% 91.1 % (42.2-75.2); RBC 3.57 XMIL (4.2-5.4); RDW 18.1 % (11.5-14.5)
[2018-09-25 07:51] LABS: PLT 8 X1000 (130-400)
[2018-09-25] MEDS ORDERED: VANCOMYCIN 1,000 MG in NS 250 ML IV SCH (08:00)
[2018-09-25 08:04] LABS: BANDS 14 % (0-1); MONO 2 % (1-9)
[2018-09-25 08:05] LABS: LYMPHS 2 % (21-51); SEGS 82 % (42-75)
[2018-09-25] MEDS: LOPRESSOR PO SCH ×2 (08:13→23:48)
[2018-09-25] MEDS: FLOMAX PO SCH (08:13)
[2018-09-25] MEDS: LANOXIN PO SCH (08:13)
[2018-09-25] MEDS: LASIX PO SCH (08:13)
[2018-09-25] MEDS: ROBAXIN PO SCH ×3 (08:13→17:29)
--- NOTE | 2018-09-25 08:51 | PROGRESS NOTE ---
DATE: 09/25/2018 SUBJECTIVE: Patient complains of some debris in her mouth. She is arousable and moves all extremities. Does appear more disheveled than about 4 days ago. There has definitely been a change in her appearance in mental status in the past 3 or 4 days. OBJECTIVE: Vital signs: T-max 99.7 degrees, pulse 105, respirations 22, blood pressure 118/46, O2 saturation on 2 L 97% to 98%. CV: Irregularly, irregular. Lungs: Mild crackles, right lung base. Abdomen: Nondistended. Oropharynx: Shows some thickened and dry mucous, and possibly some white patches consistent with possible thrush. Extremities: No calf tenderness, cords, or edema. Neuro: The patient is arousable. She has chronic deafness. She speaks without more difficulty than usual. She moves all extremities well. No focal deficits identified. Urine culture and blood cultures are growing out methicillin sensitive Staph, sensitive to the vancomycin. LABORATORIES: White count of 9.5, hemoglobin 9.5, platelets 8. PT yesterday 17.4, INR 1.32, PTT 34.3, fibrinogen 736. D-dimer 7.31. CT scan of the head reveals old meningioma with stable old lacunar infarct in the mid brain. Trace faint subarachnoid hemorrhage in the superior right frontal lobe. No midline shift. Slight worsening of periventricular white matter, chronic microvascular disease changes. Bone scan yesterday revealed degenerative arthritis in the left shoulder, but no inflammatory infectious changes. ASSESSMENT: 1. Small subarachnoid hemorrhage, left cerebral. 2. Chronic meningioma. 3. Idiopathic thrombocytopenic purpura, refractory to treatment. 4. Methicillin-sensitive Staphylococcus aureus urinary tract infection and sepsis. 5. Left shoulder pain, improved. 6. Chronic atrial fibrillation, currently off anticoagulation due to thrombocytopenia. 7. Hypothyroidism. PLAN: At this time, the patient remains on IV vancomycin. Dr. Singh is seeing the patient and considering repeat Rituxan and Nplate treatment possibly tomorrow. She is on low-dose IV steroids per Hematology as well. She remains on her Synthroid and metoprolol. She is on Protonix for GI prophylaxis of peptic ulcer disease. She is on the Robaxin for left shoulder pain. We stopped the capsaicin P topically yesterday regarding the shoulder. She is on low-IV hydration and on low daily dose of Lasix. I will increase that from 20 to 40 mg daily. I will discuss the case with Dr. Singh later today. cc: MD Tyrone Barrera Jr, MD
[2018-09-25] MEDS ORDERED: LASIX PO SCH (09:00)
[2018-09-25] MEDS ORDERED: NS + KCL 20 MEQ 1,000 ML IV SCH (11:30)
[2018-09-25] MEDS ORDERED: SOLU-MEDROL IV ONE (12:06)
[2018-09-25] MEDS: MYCOSTATIN SUSP PO SCH ×3 (13:38→23:48)
[2018-09-25] MEDS: DILAUDID IV PRN ×2 (13:47→17:53)
--- NOTE | 2018-09-25 15:26 | ECHO REPORT ---
ORDER DATE: 09/24/2018 ECHOCARDIOGRAM: INDICATION: MSSA sepsis, history of heart failure with chronic atrial fibrillation. FINDINGS: 1. The right atrium is difficult to visualize, but overall appears to be normal in size to possibly mildly enlarged. 2. Moderate to severe tricuspid regurgitation. The RV systolic pressure is measured at 88 mmHg suggesting pulmonary hypertension. 3. The right ventricle is very difficult to visualize on this study due to off axis images. I believe it is normal in size with normal systolic function. 4. No significant pulmonic insufficiency. 5. The left atrium appears to be severely enlarged. 6. There is heavy mitral annular calcification predominantly of the posterior leaflet. There is mild to moderate mitral regurgitation. On some views of the anterior mitral leaflet there is some increased echogenicity surrounding it. It is difficult to clearly tell if this is just part of the subvalvular structure or if this could be a vegetation. If clinical suspicion is high, would recommend transesophageal echo to further evaluate. The heavy mitral annular calcification is also interfering with the quality of two-dimensional valvular images. 7. Normal LV size with an end-diastolic dimension of 2.8 cm. These are very off-axis, difficult views in this patient. Normal wall thicknesses with a posterior and interventricular septal wall thickness of 0.7 and 1.0 cm respectively. Normal LV systolic function. The estimated EF is in the 65-70% range. 8. The aortic valve appears to open well. It is trileaflet. It is somewhat sclerotic. There is mild insufficiency with no stenosis. 9. Aorta appears normal in visualized segments. 10. No pericardial effusion identified. cc: MD Danny Hardy MD Roger H. Moss Jr, MD
--- NOTE | 2018-09-25 15:38 | HEMO/ONC PROGRESS NOTE ---
DATE: 09/25/2018 SUBJECTIVE: Ms. Rivera is lying in her hospital bed. She is kind of moaning and appears to be somewhat restless. There is no family at bedside. Patient does not really acknowledge my presence. She seems kind of confused. OBJECTIVE: Vital Signs: Temperature 97.5 degrees, heart rate 93, respiratory rate 24, blood pressure 125/47. O2 saturation 98% on 2 L nasal cannula. LABS AND STUDIES: White blood cells 9.5, hemoglobin 9.5, hematocrit 31.5, platelet count 8. Head CT from 09/24/2018 shows probable trace subarachnoid hemorrhage in the superior left cerebral hemisphere. PHYSICAL EXAMINATION: CV: S1, S2 noted. Irregularly irregular rhythm noted. Respiratory: Coarse breath sounds. Gastrointestinal: Abdomen is soft, with positive bowel sounds. Extremities: No bilateral lower extremity edema noted. Neurologic: Patient seems confused and is not responding. She is alert, however. ASSESSMENT AND PLAN: 1. Intracranial pressure, refractory. We are going to go ahead and get the patient set up to receive another dose of Rituxan and endplate tomorrow. We are going to go ahead and give 2 units of platelets today and premedicate with 20 mg of Solu-Medrol. We will continue to check weekly complete blood counts. 2. Bacteremia, urinary tract infection, sepsis. Continue intravenous antibiotics. Continue supportive care. 3. Trace subarachnoid hemorrhage on CT scan. Treating low platelet count as per above. We will continue to try to raise her platelet count as much as possible. 4. Pain. Poorly managed currently. She has oral [place], but nursing staff reports that she is unable to swallow. Dilaudid 0.5 mg ordered as patient is allergic to morphine. 5. Chronic atrial fibrillation. Rate controlled currently. Continue digoxin per primary team. No need for anticoagulation given her profound thrombocytopenia. 6. Disposition: Patient is do not resuscitate level 1. Her overall performance status and clinical status has greatly declined over the last 2 to 3 days. We will continue to work on her platelet count as per above. We will continue to follow along. Dictated by THI Fletcher for Danielle Yee MD cc: MD Tyrone De Los Santos Jr, MD The above note reflects my history, exam, assessment and plan. Danielle GILBERT
[2018-09-25 17:26] LABS: URINE SOURCE CATH
[2018-09-25 17:30] LABS: BILIRUBIN URINE NEGATIVE (NEGATIVE); BLOOD URINE MODERATE (NEGATIVE); COLOR YELLOW; GLUCOSE URINE NEGATIVE (NEGATIVE); LEUKOCYTES URINE NEGATIVE (NEGATIVE); NITRITE URINE NEGATIVE (NEGATIVE); TURBIDITY URINE CLEAR (CLEAR); UR EPITHELIAL CELLS <10 /HPF (<10); URINE BACTERIA NEGATIVE /HPF; URINE RBC <10 /HPF (<10); URINE WBC <10 /HPF (<10); UROBILINOGEN URINE NORMAL (NORMAL)
[2018-09-25 17:42] LABS: KETONE URINE NEGATIVE (NEGATIVE); PROTEIN URINE 30 mg/dL (NEGATIVE)
[2018-09-26] MEDS: DILAUDID IV PRN ×6 (02:06→23:23)
[2018-09-26] MEDS: PROTONIX PO SCH (06:14)
[2018-09-26] MEDS: SYNTHROID PO SCH (06:15)
[2018-09-26 07:45] LABS: BASO# 0.01 X1000 (0.0-0.2); BASO% 0.1 % (0.0-0.8); HEMATOCRIT 27.9 % (37.0-47.0); HEMOGLOBIN 8.4 g/dL (12.0-16.0); IMM GRAN# 0.04 X1000 (0.0-0.04); IMM GRAN% 0.5 % (0.0-0.5); LYMPH# 0.36 X1000 (1.2-3.4); LYMPH% 4.9 % (20.5-51.1); MCH 26.7 PG (27-31); MCHC 30.1 g/dL (33-37); MCV 88.6 FL (81-99); MONO# 0.39 X1000 (0.11-0.59); MONO% 5.4 % (1.7-9.3); NEUT# 6.48 X1000 (1.4-6.5); NEUT% 89.1 % (42.2-75.2); RBC 3.15 XMIL (4.2-5.4); RDW 18.5 % (11.5-14.5); WBC 7.28 X1000 (4.8-10.8)
[2018-09-26 07:53] LABS: CALCIUM 8.1 mg/dL (8.8-10.2); CREATININE 1.1 mg/dL (0.5-0.9); POTASSIUM 4.9 mmol/L (3.5-5.1)
[2018-09-26 07:57] LABS: PLT < 6 X1000 (130-400)
[2018-09-26 08:22] LABS: DIGOXIN 2.6 ng/mL (0.9-2.0)
[2018-09-26] MEDS ORDERED: SODIUM CHLORIDE 0.9% INJ SCH (08:45)
[2018-09-26] MEDS ORDERED: PROTONIX IV SCH (08:45)
[2018-09-26] MEDS ORDERED: 1/2 NS 1,000 ML IV SCH (08:45)
--- NOTE | 2018-09-26 08:58 | PROGRESS NOTE ---
DATE: 09/26/2018 SUBJECTIVE: The patient has worsened even more the last 24 hours. She has her mouth open and has more shallow respiration. She is arousable, and appears not to be any major discomfort, but is not nearly as responsive as she has been. OBJECTIVE: Vitals: Temperature maximum 99 degrees, pulse 114, blood pressure 149/56, O2 saturation on nasal cannula 89%. CARDIOVASCULAR: Irregularly irregular. Lungs: Some crackles bilaterally. Patient with shallow respirations. She is responsive, but her eyes or showing some dilation of the pupils. Abdomen: She seems to be somewhat tender in the abdomen. Extremities: No calf tenderness, cords or edema. Neurologic: Again, patient less responsive. She does move her extremities, but is not following commands. LABORATORY/DIAGNOSTIC DATA: White count 7.28, hemoglobin 8.4, platelets less than 6. Sodium 149, potassium 4.9, chloride 106, CO2 29, BUN 128, creatinine 1.1, glucose 350, calcium 8.1. Echocardiogram done two days ago reveals EF of 65 to 70 percent with moderate to severe TR and pulmonary hypertension is noted. Also, heavy mitral annular calcification, particularly of the posterior leaflet with [id number] MR on some of the views. There is possible anterior mitral leaflet. Increased echogenicity. Not able to rule out subvalvular structure versus vegetation. No pericardial effusion. ASSESSMENT: 1. Idiopathic thrombocytopenia, refractory to treatment. 2. Mental status change. 3. Mitral calcification with mild to moderate MR and possible valvular vegetation. 4. Moderate to severe tricuspid regurgitation. 5. Small subarachnoid hemorrhage. 6. Abdominal tenderness, rule out retroperitoneal hemorrhage. 7. Chronic meningioma. 8. MSSA urinary tract infection and sepsis. 9. Chronic atrial fibrillation, off anticoagulation due to thrombocytopenia. 10. Hypothyroidism. 11. Do Not Resuscitate Level 1. PLAN: I spoke with the patient's family in detail and they are aware of the gravity of the situation. The patient was scheduled to get Rituxan and Nplate again today, but that may be on hold, but I will leave that to Dr. Yee and the Hematology Team. I am going to change her to half- normal saline IV fluids at a low rate and give her supportive measures. Family is aware of her likely demise and poor prognosis. We will continue IV vancomycin. Change medications to IV forms. We will give her supportive measures. cc: MD Tyrone Barrera Jr, MD
[2018-09-26] MEDS ORDERED: LANOXIN IV SCH (09:00)
[2018-09-26] MEDS ORDERED: LASIX IV SCH (09:00)
[2018-09-26] MEDS: LOPRESSOR IV SCH ×3 (10:26→23:00)
[2018-09-26] MEDS ORDERED: TYLENOL PR PRN (10:55)
[2018-09-27 00:08] VITALS: BP 101/38
[2018-09-27] MEDS: DILAUDID IV PRN (02:25)
--- NOTE | 2018-09-27 04:11 | HEMO/ONC PROGRESS NOTE ---
DATE: 09/26/2018 SUBJECTIVE: Ms. Rivera is lying in her hospital bed. She is nonresponsive. She is in no distress. She has several family members at bedside. She has shallow, slow breathing. OBJECTIVE: Vital Signs: Temperature 99.0, heart rate 114, respiratory rate 13 , O2 saturation 93% on 3 L nasal cannula. Blood pressure 132/60. Cardiovascular: Tachycardia noted. Respiratory: Slow respiratory rate. Coarse breath sounds throughout. Gastrointestinal: Abdomen nondistended. Extremities: Trace edema noted. ASSESSMENT AND PLAN: 1. Idiopathic thrombocytopenia. The patient has had a significant decline in overall status since yesterday. The patient has a rather poor prognosis. Her demise seems imminent. We recommend at this time not proceeding with any further treatment for ITP, including not giving Nplate or Rituxan. Both medications will not help her overall status currently. Her ITP has been rather refractory to treatment. 2. Sepsis, with MSSA urinary tract infection, now with possible valvular vegetation. She will continue on IV antibiotics. The family does not wish to pursue any further evaluations at this time. 3. Changes in mental status. The patient had a significant change in mental status, especially over the weekend. She has a noted small subarachnoid hemorrhage on CT scan, likely related to her overall decline. 4. Disposition. The patient is Do Not Resuscitate level 1. We would encourage just comfort measures. Again, the patient has a poor prognosis, and her demise is likely in the near future. Dictated by THI Fletcher for Danielle Yee MD cc: MD Tyrone De Los Santos Jr, MD I have seen and examined the patient and discussed her overall prognosis with her family. We will discontinue Rituxan/Nplate at this time. She has a grim prognosis. Danielle GILBERT
--- NOTE | 2018-10-28 04:58 | DISCHARGE SUMMARY ---
ADMISSION DATE: 09/08/2018 DISCHARGE DATE: 09/27/2018 DATE OF : 09/27/2018. DISCHARGE DIAGNOSES: 1. Idiopathic thrombocytopenic purpura. 2. Methicillin-sensitive Staphylococcus aureus urinary tract infection with sepsis and possible valvular vegetation. 3. Moderate to severe tricuspid regurgitation. 4. Small subarachnoid hemorrhage. 5. Abdominal tenderness, ruled out peritoneal hemorrhage. 6. Chronic meningioma. 7. Chronic atrial fibrillation, off anticoagulation at the onset of this hospitalization due to the thrombocytopenia. 8. Hypothyroidism. 9. Do Not Resuscitate level 1. 10.Longstanding deafness. CONSULTANTS: Dr. Danielle Yee, hematology/oncology. PROCEDURES: 1. Chest x-ray done 09/08/2018: No acute disease. 2. Chest x-ray done 09/17/2018: Emphysema with small pleural effusions. 3. Chest x-ray done 09/20/2018 revealing emphysema with basilar atelectasis similar to prior study. 4. Left shoulder x-ray: Negative exam. 5. Chest x-ray done 09/23/2018: Slight worsening of pulmonary vascular congestion. 6. Bone scan 3 phase revealing degenerative arthritis without evidence of inflammatory or infectious arthritis. 7. CT of the head done 09/24/2018 revealed probable trace subarachnoid hemorrhage in the superior left cerebral hemisphere with a large meningioma posterior fossa which is chronic. 8. Echocardiogram done 09/24/2018 revealing moderate to severe TR, heavy mitral annular calcification predominantly on the posterior leaflet, mild to moderate MR, some increased echogenicity at the anterior mitral leaflet, rule out vegetation, EF 65% to 70% , aortic valve trileaflet and somewhat sclerotic with mild aortic insufficiency. REASON FOR ADMISSION/HOSPITAL COURSE: The patient is an 83-year-old white female with a history of prior meningioma posterior fossa followed in the past by Neurology, also with history of congestive heart failure, hypothyroidism, chronic atrial fibrillation on Xarelto treatment and chronic deafness. Patient had some petechiae on her body developed on the morning prior to admission that had increased more diffuse over her body and a couple of small hematomas above her knees. The patient was evaluated in the emergency room and found to have a hematocrit of 40.4, white count of 8600, blood sugar 137, urinalysis moderate blood, platelets were 6000. Patient had some mild rectal bleeding also. She was admitted, given 125 mg of IV Solu-Medrol. Xarelto and Celebrex were stopped. She was continued on Lasix, potassium, Synthroid, metoprolol, Singulair, and Dr. Yee was consulted and saw the patient. Patient was kept mainly at bedrest due to potential for falls and Dr. Yee continued the IV Solu-Medrol. By 09/11/2018, platelets remained less than 6, hemoglobin 11.1. Patient was placed on IV immunoglobulin per Dr. Yee. She also received some platelets and overall during the hospitalization received 9 units of platelets transfused. By 09/14/2018, the patient had been continued on IVIG and Decadron per Dr. Yee and her platelets improved to 18,000. By 09/16/2018, continued treatment with the IVIG and Decadron was pursued. By 09/18/2018, she had a little shortness of breath and resumed some IV Lasix that she had been on at home as she had been taken off that to try to avoid any falls. Oakes catheter was placed by 09/19/2018 to try to lessen the risk of fall. She was on GI prophylaxis with Protonix and she was placed on low-dose digoxin for atrial fibrillation that had an increase in her heart rate. Patient had some shoulder pain on 09/20/2018. An x-ray and bone scan were essentially negative. Patient was not responsive to the IVIG and steroids so she was placed on Rituxan and Nplate per Dr. Yee and that was pursued for several days and by 09/24/2018 she was running some fever, and an echocardiogram and a head CT were done with the findings of the old meningioma and a small subdural hematoma that was not clinically notable at that time. Echocardiogram was with results as above, could not rule out a small mitral vegetation. Patient had been placed on IV vancomycin. By 09/25/2018, she had continued to decline with her mental status as had been apparent about 3-4 days prior to 09/25/2018 and gave her some low-dose IV hydration and continued her low-dose Lasix daily. Patient was placed at DNR level 1 and she failed to respond to maximum care with Rituxan and Nplate per Dr. Yee and she continued to decline in the latter 36 hours prior to hospitalization she was not arousable but was not in any discomfort and pain control was the main objective and she was attended by her family vigorously and remained DNR level 1 and subsequently on the morning of 09/27/2018 at 2:55 a.m. she . cc: MD Tyrone Barrera Jr, MD
== END 2018-09-27 02:55 | disposition expired | DRG 813 ==
LOC: ED 12:45 → 3N 17:20 → 4N 18:22 → 3N 09-11 18:27
PROVIDERS: ADMIT Emergency Medicine; ATTEND Family Medicine
CPT/HCPCS: 36415; 36430; 70450; 71010; 71020; 71045; 71046; 73030; 78315; 80048; 80053; 80074; 80162; 81001; 82550; 83615; 83735; 84100; 84484; 85025; 85027; 85379; 85384; 85610; 85730; 86022; 86850; 86900; 86901; 87040; 87077; 87088; 87186; 93005; 93010; 93306; 94761; 96361; 96374; 97110; 97161; 99285; 99291; A9270; A9503; C9113; J1160; J1170; J1200; J1561; J1940; J2796; J2920; J2930; J3370; J3480; J7030; J7040; J7050; J8540; J9312; P9035; S0028; S0164